=== PATIENT | male | born 1990 | race American Indian/Alaskan Native ===

== ENCOUNTER 2019-03-31 15:56 | Emergency (ER) | payer SELFPAY ==
[2019-03-31 16:05] VITALS: BP 140/84
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
--- NOTE | 2019-03-31 17:59 | Cat Scan Report ---
CT head/brain wo con INDICATION / CLINICAL INFORMATION: 29 years Male; headache. TECHNIQUE: Routine CT head without contrast. All CT scans at this location are performed using CT dos e reduction for ALARA by means of automated exposure control. COMPARISON: None. FINDINGS: BRAIN / INTRACRANIAL CONTENTS: The brain demonstrate appropriate attenuation. The ventricular system is within normal limits in size and configuration. There is no CT evidence of acute intracranial hemo rrhage or significant mass effect. ORBITS: No significant abnormality of visualized orbits. SINUSES / MASTOIDS: No significant abnormality the visualized paranasal sinuses or mastoid air cells. CRANIOCERVICAL JUNCTION: No significant abnormality. ADDITIONAL FINDINGS: None. IMPRESSION: 1. There is no CT evidence of acute intracranial process. Signer Name: Pierce Merlos MD Signed: 03/31/2019 5:55 PM Workstation Name: [id number]
== END 2019-03-31 17:44 | disposition left against medical advice (07) ==
LOC: ED 15:56
DX: R51 Headache (principal); J45.909 Unspecified asthma, uncomplicated; V49.49XA Driver injured in collision with other motor vehicles in traffic accident, initial encounter; Y93.89 Activity, other specified; Y92.488 Other paved roadways as the place of occurrence of the external cause; Y99.8 Other external cause status
CPT/HCPCS: 70450; 99283

== ENCOUNTER 2019-06-07 11:51 | Emergency (ER) | payer SELFPAY ==
[2019-06-07 11:56] VITALS: BP 139/74
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
== END 2019-06-07 12:40 | disposition left against medical advice (07) ==
LOC: ED 11:51
DX: M54.89 Other dorsalgia (principal); W30.81XA Contact with agricultural transport vehicle in stationary use, initial encounter; Y93.89 Activity, other specified; Y92.410 Unspecified street and highway as the place of occurrence of the external cause; Y99.8 Other external cause status
CPT/HCPCS: 99281

== ENCOUNTER 2020-03-13 15:29 | Emergency (ER) | payer SELFPAY ==
[2020-03-13 15:56] VITALS: BP 157/91
== END 2020-03-13 17:54 | disposition left against medical advice (07) ==
LOC: ED 15:29
DX: R51.9 Headache, unspecified (principal); Z53.21 Procedure and treatment not carried out due to patient leaving prior to being seen by health care provider

== ENCOUNTER 2020-03-14 08:08 | Emergency (ER) | payer SELFPAY ==
[2020-03-14 08:19] VITALS: BP 145/87
[2020-03-14] MEDS ORDERED: diphenhydrAMINE 25 MG CAP PO ONE (09:05)
[2020-03-14] MEDS: KETOROLAC 60 MG/2 ML INJ IM ONE ×2 (09:15→09:19)
--- NOTE | 2020-03-14 10:17 | Cat Scan Report ---
CT head without contrast INDICATION : headcahe. TECHNIQUE: Axial imaging performed from the skull apex through the skull base without the use of con trast. All CT scans at this location are performed using CT dose reduction for ALARA by means of aut omated exposure control. COMPARISON: CT head from 03/31/2019 FINDINGS: Parenchyma: No acute intracranial hemorrhage or parenchymal abnormality. Ventricles: Ventricles are normal in size and appear symmetric. Soft tissues: Soft tissues including the orbits appear normal. Bones: No acute osseous abnormality. Sinuses: Sinuses and mastoid air cells are clear. IMPRESSION: No acute abnormality. Signer Name: Curtis Alexander MD Signed: 03/14/2020 10:16 AM Workstation Name: [id number]
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
== END 2020-03-14 10:46 | disposition home or self-care (01) ==
LOC: ED 08:08
DX: S00.03XA Contusion of scalp, initial encounter (principal); R51.9 Headache, unspecified; J45.909 Unspecified asthma, uncomplicated; Z79.899 Other long term (current) drug therapy; W22.8XXA Striking against or struck by other objects, initial encounter; Y93.89 Activity, other specified; Y92.009 Unspecified place in unspecified non-institutional (private) residence as the place of occurrence of the external cause; Y99.8 Other external cause status
CPT/HCPCS: 70450; 99283; J1885

== ENCOUNTER 2020-09-08 11:14 | Emergency (ER) | payer SELFPAY ==
[2020-09-08 11:37] VITALS: BP 134/87
--- NOTE | 2020-09-08 11:54 | Event Note ---
ED Screening Note ED Screening Note: pt presents for constipation for 3 days states he has n/v and generalized abd pain states he tried to have a BM today and saw liquid bright red blood PMHx IBS? no allergies to meds PSHx none This initial assessment/diagnostic orders/clinical plan/treatment(s) is/are subject to change based on patients health status, clinical progression and re- assessment by fellow clinical providers in the ED. Further treatment and workup at subsequent clinical providers discretion. Patient/guardian urged not to elope from the ED as their condition may be serious if not clinically assessed and managed. Initial orders include: labs, UA, xr, ct
--- NOTE | 2020-09-08 12:24 | XRay Report ---
Abdomen single view INDICATION: Abdominal pain IMPRESSION: Nonobstructive bowel gas pattern. No free air. Signer Name: Tera Dietrich MD Signed: 09/08/2020 12:19 PM Workstation Name: [id number]
[2020-09-08 12:52] LABS: Hemoglobin 16.5 gm/dl (11.8-15.2); Mean Corpuscular HGB Conc 35 % (32-34); Mean Corpuscular Volume 86 fl (84-94); Platelet Count 110 K/mm3 (140-440); Red Blood Count 5.46 M/mm3 (3.65-5.03); Red Cell Distribution Width 14.2 % (13.2-15.2)
[2020-09-08 13:00] LABS: Bilirubin,Urine NEG (Negative); Blood,Urine NEG (Negative); Color,Urine Yellow (Yellow); Mucus,Urine FEW /HPF; Urobilinogen,Urine < 2.0 mg/dL (<2.0)
[2020-09-08] MEDS ORDERED: LACTATED RINGERS 1,000 ML IV ONE (13:05)
[2020-09-08] MEDS ORDERED: HYOSCYAMINE SUBL 0.125 MG TAB SL ONE (13:06)
[2020-09-08] MEDS ORDERED: ONDANSETRON 4 MG/2 ML INJ IV ONE (13:06)
--- NOTE | 2020-09-08 13:13 | Emergency Department Report ---
ED General Adult HPI - General Chief complaint: Abdominal Pain Stated complaint: POSS BOWEL OBSTR Time Seen by Provider: 09/08/20 11:52 Source: patient Mode of arrival: Ambulatory Limitations: No Limitations - History of Present Illness Initial comments: 30-year-old male without significant past medical history presents for evaluation of abdominal pain. According to the patient he has not felt well for 4 days, initially had diarrhea but is now constipated, has had nausea and vomiting and believes he had a fever and does report chills as well as myalgias. Did not check temperature. Denies cough or respiratory symptoms. Symptoms moderate, nothing makes better or worse, states that he is unable to keep anything down at home. - Related Data Previous Rx's Medication Instructions Recorded Last Taken Type Naproxen 500 mg PO Q12H PRN #12 tablet 03/14/20 Unknown Rx Ciprofloxacin HCl 500 mg PO BID #20 tablet 09/08/20 Unknown Rx Promethazine [Phenergan] 25 mg PO Q6HR PRN #12 tab 09/08/20 Unknown Rx metroNIDAZOLE [Flagyl TAB] 500 mg PO Q8HR #30 tablet 09/08/20 Unknown Rx traMADoL [Ultram 50 MG tab] 50 mg PO Q4HR PRN #15 tablet 09/08/20 Unknown Rx Allergies Allergy/AdvReac Type Severity Reaction Status Date / Time No Known Allergies Allergy Verified 03/14/20 08:16 ED Review of Systems ROS: Stated complaint: POSS BOWEL OBSTR Other details as noted in HPI Comment: All other systems reviewed and negative Gastrointestinal: as per HPI ED Past Medical Hx - Past Medical History Hx Asthma: Yes - Surgical History Past Surgical History?: No - Social History Smoking Status: Never Smoker - Medications Home Medications: Home Medications Medication Instructions Recorded Confirmed Last Taken Type Naproxen 500 mg PO Q12H PRN #12 tablet 03/14/20 Unknown Rx Ciprofloxacin HCl 500 mg PO BID #20 tablet 09/08/20 Unknown Rx Promethazine [Phenergan] 25 mg PO Q6HR PRN #12 tab 09/08/20 Unknown Rx metroNIDAZOLE [Flagyl TAB] 500 mg PO Q8HR #30 tablet 09/08/20 Unknown Rx traMADoL [Ultram 50 MG tab] 50 mg PO Q4HR PRN #15 tablet 09/08/20 Unknown Rx ED Physical Exam - General Limitations: No Limitations General appearance: alert, in no apparent distress - Head Head exam: Present: atraumatic, normocephalic - Eye Eye exam: Present: normal appearance - ENT ENT exam: Present: mucous membranes moist - Neck Neck exam: Present: normal inspection - Respiratory Respiratory exam: Present: normal lung sounds bilaterally. Absent: respiratory distress - Cardiovascular Cardiovascular Exam: Present: regular rate, normal rhythm. Absent: systolic murmur, diastolic murmur, rubs, gallop - GI/Abdominal GI/Abdominal exam: Present: soft, tenderness (diffusely), normal bowel sounds. Absent: guarding, rebound - Rectal Rectal exam: Present: deferred - Extremities Exam Extremities exam: Present: normal inspection - Back Exam Back exam: Present: normal inspection - Neurological Exam Neurological exam: Present: alert, oriented X3 - Psychiatric Psychiatric exam: Present: normal affect, normal mood - Skin Skin exam: Present: warm, dry, intact, normal color. Absent: rash ED Course Vital Signs 09/08/20 11:35 Temperature 99.4 F Pulse Rate 94 H Respiratory 18 Rate Blood Pressure 134/87 O2 Sat by Pulse 98 Oximetry ED Medical Decision Making - Lab Data Result diagrams: 09/08/20 12:29 09/08/20 12:29 Lab Results 09/08/20 09/08/20 09/08/20 Range/Units 12:29 12:29 12:40 WBC 2.7 L (4.5-11.0) K/mm3 RBC 5.46 H (3.65-5.03) M/mm3 Hgb 16.5 H (11.8-15.2) gm/dl Hct 47.0 H (35.5-45.6) % MCV 86 (84-94) fl MCH 30 (28-32) pg MCHC 35 H (32-34) % RDW 14.2 (13.2-15.2) % Plt Count 110 L (140-440) K/mm3 Add Manual Diff Complete Total Counted 100 Seg Neutrophils % Pipe Stem [place]yer Seg Neuts % (Manual) 47.0 (40.0-70.0) % Lymphocytes % (Manual) 49.0 H (13.4-35.0) % Monocytes % (Manual) 4.0 (0.0-7.3) % Nucleated RBC % Not Reportable Seg Neutrophils # Man 1.3 L (1.8-7.7) K/mm3 Band Neutrophils # 0.0 K/mm3 Lymphocytes # (Manual) 1.3 (1.2-5.4) K/mm3 Abs React Lymphs (Man) 0.0 K/mm3 Monocytes # (Manual) 0.1 (0.0-0.8) K/mm3 Eosinophils # (Manual) 0.0 (0.0-0.4) K/mm3 Basophils # (Manual) 0.0 (0.0-0.1) K/mm3 Metamyelocytes # 0.0 K/mm3 Myelocytes # 0.0 K/mm3 Promyelocytes # 0.0 K/mm3 Blast Cells # 0.0 K/mm3 WBC Morphology Not Reportable Hypersegmented Neuts Not Reportable Hyposegmented Neuts Not Reportable Hypogranular Neuts Not Reportable Smudge Cells Not Reportable Toxic Granulation Not Reportable Toxic Vacuolation Not Reportable Dohle Bodies Not Reportable Pelger-Huet Anomaly Not Reportable Arianna Rods Not Reportable Platelet Estimate Consistent w auto Clumped Platelets Not Reportable Plt Clumps, EDTA Not Reportable Large Platelets Not Reportable Giant Platelets Not Reportable Platelet Satelliting Not Reportable Plt Morphology Comment Not Reportable RBC Morphology Normal Dimorphic RBCs Not Reportable Polychromasia Not Reportable Hypochromasia Not Reportable Poikilocytosis Not Reportable Anisocytosis Not Reportable Microcytosis Not Reportable Macrocytosis Not Reportable Spherocytes Not Reportable Pappenheimer Bodies Not Reportable Sickle Cells Not Reportable Target Cells Not Reportable Tear Drop Cells Not Reportable Ovalocytes Not Reportable Helmet Cells Not Reportable Carter-[place] Bodies Not Reportable [place] Rings Not Reportable [place] Cells Not Reportable Bite Cells Not Reportable Crenated Cell Not Reportable Elliptocytes Not Reportable Acanthocytes (Spur) Not Reportable Rouleaux Not Reportable Hemoglobin C Crystals Not Reportable Schistocytes Not Reportable Malaria parasites Not Reportable Yoni Bodies Not Reportable Hem Pathologist Commnt No Sodium 133 L (137-145) mmol/L Potassium 3.2 L (3.6-5.0) mmol/L Chloride 95.0 L (98-107) mmol/L Carbon Dioxide 24 (22-30) mmol/L Anion Gap 17 mmol/L BUN 7 L (9-20) mg/dL Creatinine 0.9 (0.8-1.3) mg/dL Estimated GFR > 60 ml/min BUN/Creatinine Ratio 8 % Glucose 91 (75-100) mg/dL Calcium 8.4 (8.4-10.2) mg/dL Total Bilirubin 0.50 (0.1-1.2) mg/dL AST 35 (5-40) units/L ALT 34 (7-56) units/L Alkaline Phosphatase 75 (35-129) units/L Total Protein 8.1 (6.3-8.2) g/dL Albumin 4.0 (3.9-5) g/dL Albumin/Globulin Ratio 1.0 % Lipase 77 H (13-60) units/L Urine Color Yellow (Yellow) Urine Turbidity Clear (Clear) Urine pH 6.0 (5.0-7.0) Ur Specific [place] 1.016 (1.003-1.030) Urine Protein 30 mg/dl (Negative) mg/dL Urine Glucose (UA) Neg (Negative) mg/dL Urine Ketones Tr (Negative) mg/dL Urine Blood Neg (Negative) Urine Nitrite Neg (Negative) Urine Bilirubin Neg (Negative) Urine Urobilinogen < 2.0 (<2.0) mg/dL Ur Leukocyte Esterase Neg (Negative) Urine WBC (Auto) 5.0 (0.0-6.0) /HPF Urine RBC (Auto) 2.0 (0.0-6.0) /HPF U Epithel Cells (Auto) < 1.0 (0-13.0) /HPF Urine Mucus Few /HPF - Radiology Data Radiology results: report reviewed CT abdomen pelvis shows findings suggestive of proctitis with associated lymphadenopathy - Medical Decision Making 30-year-old male presents with nausea vomiting for the past 4 days. Also had diarrhea but now states he is constipated. Reports associated abdominal pain. Also reports chills, possible fever, body aches. No respiratory symptoms today. On exam heart sounds are normal, lungs are clear, abdomen is mildly tender diffusely, no peritonitis. Labs IV fluids, antiemetics ordered. CT will also be obtained. Patient is improved at this time and able to tolerate oral intake, no further vomiting in the emergency department. Labs today reveal a mild leukopenia as well as mild thrombocytopenia. There is also mild hyponatremia and hypochloremia likely secondary to dehydration and potassium was slightly decreased at 3.2 which was repleted orally. CT scan shows findings suggestive of proctitis with associated lymphadenopathy in the lower abdomen and the patient does admit to having irregular bowel movements for some time. The patient was reexamined and is in no distress at this time, benign abdomen. I have discussed all lab findings as well as CT findings and discussed the need for close outpatient follow-up with gastroenterology to ensure that there is not an underlying mass in the rectal region causing these changes today. I feel that the patient is stable for outpatient follow-up and treatment at this time. I also recommended that he have his white blood cell count rechecked and consider obtaining an HIV test with the health department or primary care. He verbalized understanding and agreement with this plan. Return precautions were given. - Differential Diagnosis Gastroenteritis, viral syndrome, colitis, bowel obstruction Critical care attestation.: If time is entered above; I have spent that time in minutes in the direct care of this critically ill patient, excluding procedure time. ED Disposition Clinical Impression: Thrombocytopenia, Proctitis Leukopenia Qualifiers: Leukopenia type: unspecified Qualified Code(s): D72.819 - Decreased white blood cell count, unspecified Nausea & vomiting Qualifiers: Vomiting type: unspecified Vomiting Intractability: non-intractable Qualified Code(s): R11.2 - Nausea with vomiting, unspecified Disposition: DC-01 TO HOME OR SELFCARE Is pt being admited?: No Condition: Stable Instructions: Proctitis Additional Instructions: Your work-up today appears to be consistent with proctitis or inflammation/infection of the rectum. There were associated lymph nodes enlarged on the CT scan and as discussed after treatment with antibiotics you must follow-up with gastroenterology (GI) to ensure that there is no underlying mass causing the CT findings. As discussed your white blood cell count and platelets are also a little bit decreased today and should be repeated by your primary care doctor and I also recommend that you undergo an HIV test with the health department or your primary care doctor if there is any concern for that. Prescriptions: Ciprofloxacin HCl 500 mg PO BID #20 tablet metroNIDAZOLE [Flagyl TAB] 500 mg PO Q8HR #30 tablet Promethazine [Phenergan] 25 mg PO Q6HR PRN #12 tab PRN Reason: Nausea traMADoL [Ultram 50 MG tab] 50 mg PO Q4HR PRN #15 tablet PRN Reason: Pain Referrals: PRIMARY CARE, [Primary Care Provider] - 3-5 Days MARILU POLANCO MD [Staff Physician] - 3-5 Days Time of Disposition: 16:26
[2020-09-08 13:17] LABS: Alanine Aminotransferase 34 units/L (7-56); BUN/Creatinine Ratio 8; Blood Urea Nitrogen 7 mg/dL (9-20); Calcium 8.4 mg/dL (8.4-10.2); Hemolysis Index 17
[2020-09-08] MEDS ORDERED: POTASSIUM CHLORIDE ER 20 MEQ TAB PO ONE (13:18)
[2020-09-08 14:04] LABS: Total Cells Counted 100
[2020-09-08 14:05] LABS: Platelet Estimate Consistent w Auto; RBC Morphology Normal
[2020-09-08] MEDS ORDERED: METOCLOPRAMIDE 10 MG/2 ML INJ IV ONE (15:12)
[2020-09-08] MEDS ORDERED: diphenhydrAMINE 50 MG/ML VIAL IV ONE (15:12)
--- NOTE | 2020-09-08 16:15 | Cat Scan Report ---
CT ABDOMEN AND PELVIS WITH CONTRAST INDICATION / CLINICAL INFORMATION: abd pain, n/v, constipation. TECHNIQUE: Axial CT images were obtained through the abdomen and pelvis after IV contrast. All CT scans at this location are performed using CT dose reduction for ALARA by means of automated exposure control. COMPARISON: None available. FINDINGS: LOWER CHEST: No significant abnormality. LIVER: No significant abnormality. GALLBLADDER: No significant abnormality. BILE DUCTS: No significant abnormality. PANCREAS: No significant abnormality. SPLEEN: No significant abnormality. ADRENALS: No significant abnormality. RIGHT KIDNEY / URETER: No significant abnormality. LEFT KIDNEY / URETER: No significant abnormality. STOMACH / SMALL BOWEL: No significant abnormality. COLON: No significant abnormality. No significant colonic stool burden. Mild thickening of the coloni c wall at the rectal vault (series 2 image 139). No pericolonic abscess is noted. APPENDIX: No significant abnormality. PERITONEUM: No free fluid. No free air. No fluid collection. LYMPH NODES: Scattered reactive appearing lymph nodes are noted in the mesentery and right lower quad rant of the abdomen. None of which are enlarged according to CT size criteria. However, there are enl arged lymph nodes in the deep pelvis perirectal region, the largest measuring 1.1 cm short axis anter ior to the sacrum (series 2 image 144). AORTA / ARTERIES: No significant abnormality. IVC / VEINS: No significant abnormality. URINARY BLADDER: No significant abnormality. REPRODUCTIVE ORGANS: No significant abnormality. ADDITIONAL FINDINGS: None. SKELETAL SYSTEM: No significant abnormality. No aggressive osseous lesions. IMPRESSION: 1. Mild thickening of the colonic wall at the rectal vault with pericolonic/perirectal lymphadenopath y as described above. This could represent infectious/inflammatory proctitis. Short-term follow-up af ter resolution of acute process is recommended to rule out any underlying colonic wall pathology. No evidence of pericolonic abscess. 2. Numerous reactive appearing lymph nodes scattered throughout the mesentery and right lower quadran t abdomen without significant fat stranding. This could represent mild mesenteric adenitis. 3. The gallbladder and appendix are unremarkable. 4. No significant colonic stool burden to suggest constipation. Signer Name: Jordan Yanes MD Signed: 09/08/2020 4:10 PM Workstation Name: [id number]
== END 2020-09-08 16:49 | disposition home or self-care (01) ==
LOC: ED 11:14
DX: D69.6 Thrombocytopenia, unspecified (principal); D72.819 Decreased white blood cell count, unspecified; K62.89 Other specified diseases of anus and rectum; R11.2 Nausea with vomiting, unspecified; J45.909 Unspecified asthma, uncomplicated; Z79.899 Other long term (current) drug therapy
CPT/HCPCS: 36415; 74019; 74177; 80053; 81001; 83690; 85007; 85025; 96361; 96374; 96375; 99284; J1200; J2405; J2765; J7120; Q9967

== ENCOUNTER 2020-09-14 06:43 | Emergency (ER) | payer SELFPAY ==
[2020-09-14] MEDS ORDERED: ONDANSETRON 4 MG/2 ML INJ IV ONE (10:06)
[2020-09-14] MEDS ORDERED: SODIUM CHLORIDE 0.9% 1000 ML 1,000 ML IV ONE (10:06)
[2020-09-14] MEDS ORDERED: FAMOTIDINE 20 MG/2 ML INJ IV ONE (10:06)
--- NOTE | 2020-09-14 10:18 | Emergency Department Report ---
HPI - General Chief Complaint: Nausea/Vomiting/Diarrhea Time Seen by Provider: 09/14/20 09:54 - HPI HPI: Room 23 The patient is a 30-year-old male present with chief complaint of intractable nausea vomiting. Patient states he has intractable nausea vomiting with any meal. The patient states last time he had a bowel movement was 3 to 4 days ago it was black. Patient denies history of fever. Patient denies any forms of pain. The patient was seen in this ED for the same approximate 1 week ago but states he has not yet seen the hand packer/packager. ED Past Medical Hx - Past Medical History Hx Asthma: Yes - Surgical History Past Surgical History?: No - Family History Family history: no significant - Social History Smoking Status: Never Smoker Substance Use Type: None (Denies illicit drug use) - Medications Home Medications: Home Medications Medication Instructions Recorded Confirmed Last Taken Type Naproxen 500 mg PO Q12H PRN #12 tablet 03/14/20 Unknown Rx Ciprofloxacin HCl 500 mg PO BID #20 tablet 09/08/20 Unknown Rx Promethazine [Phenergan] 25 mg PO Q6HR PRN #12 tab 09/08/20 Unknown Rx metroNIDAZOLE [Flagyl TAB] 500 mg PO Q8HR #30 tablet 09/08/20 Unknown Rx traMADoL [Ultram 50 MG tab] 50 mg PO Q4HR PRN #15 tablet 09/08/20 Unknown Rx Ondansetron [Zofran ODT TAB] 8 mg PO Q8HR #20 tab.rapdis 09/14/20 Unknown Rx Promethazine [Phenergan] 25 mg [place] Q6HR PRN #5 supp.rect 09/14/20 Unknown Rx ED Review of Systems ROS: Stated complaint: N/V Other details as noted in HPI Constitutional: denies: fever Eyes: denies: eye pain ENT: denies: throat pain Respiratory: no symptoms reported Cardiovascular: denies: chest pain Endocrine: no symptoms reported Gastrointestinal: nausea, vomiting, constipation, melena. denies: abdominal pain Genitourinary: denies: dysuria Musculoskeletal: denies: back pain Neurological: denies: headache Physical Exam - Physical Exam Vital Signs: Vital Signs 09/14/20 07:05 Temperature 98.8 F Pulse Rate 86 Respiratory 18 Rate Blood Pressure 137/83 O2 Sat by Pulse 98 Oximetry Physical Exam: GENERAL: The patient is well-developed well-nourished male lying on stretcher not appearing to be in acute distress. [] HEENT: Normocephalic. Atraumatic. Extraocular motions are intact. Patient has moist mucous membranes. NECK: Supple. Trachea midline CHEST/LUNGS: Clear to auscultation. There is no respiratory distress noted. HEART/CARDIOVASCULAR: Regular. There is no tachycardia. There is no gallop rub or murmur. ABDOMEN: Abdomen is soft, nontender. Patient has normal bowel sounds. There is no abdominal distention. SKIN: There is no rash. There is no edema. There is no diaphoresis. NEURO: The patient is awake, alert, and oriented. The patient is cooperative. The patient has no focal neurologic deficits. The patient has normal speech MUSCULOSKELETAL: There is no evidence of acute injury. Rectal: GUAIAC NEGATIVE BROWN STOOL ED Course Vital Signs 09/14/20 07:05 Temperature 98.8 F Pulse Rate 86 Respiratory 18 Rate Blood Pressure 137/83 O2 Sat by Pulse 98 Oximetry - Reevaluation(s) Reevaluation #1: 09/14/20 14:27 Patient resting comfortably. Patient updated on work-up. Patient tolerated p.o. challenge ED Medical Decision Making - Lab Data Result diagrams: 09/14/20 10:06 09/14/20 10:06 Laboratory Tests 09/14/20 09/14/20 10:06 10:06 WBC 5.5 RBC 5.66 H Hgb 17.1 H Hct 49.4 H MCV 87 MCH 30 MCHC 35 H RDW 13.8 Plt Count 202 Lymph % (Auto) Respiratory Clinician [place] % (Auto) Respiratory Clinician Eos % (Auto) Respiratory Clinician Baso % (Auto) Respiratory Clinician Lymph # (Auto) Respiratory Clinician [place] # (Auto) Respiratory Clinician Eos # (Auto) Respiratory Clinician Baso # (Auto) Respiratory Clinician Add Manual Diff Complete Total Counted 100 Seg Neutrophils % Respiratory Clinician Seg Neuts % (Manual) 66.0 Lymphocytes % (Manual) 29.0 Monocytes % (Manual) 5.0 Nucleated RBC % Not Reportable Seg Neutrophils # Respiratory Clinician Seg Neutrophils # Man 3.6 Band Neutrophils # 0.0 Lymphocytes # (Manual) 1.6 Abs React Lymphs (Man) 0.0 Monocytes # (Manual) 0.3 Eosinophils # (Manual) 0.0 Basophils # (Manual) 0.0 Metamyelocytes # 0.0 Myelocytes # 0.0 Promyelocytes # 0.0 Blast Cells # 0.0 WBC Morphology Not Reportable Hypersegmented Neuts Not Reportable Hyposegmented Neuts Not Reportable Hypogranular Neuts Not Reportable Smudge Cells Not Reportable Toxic Granulation Not Reportable Toxic Vacuolation Not Reportable Dohle Bodies Not Reportable Pelger-Huet Anomaly Not Reportable Arianna Rods Not Reportable Platelet Estimate Consistent w auto Clumped Platelets Not Reportable Plt Clumps, EDTA Not Reportable Large Platelets Not Reportable Giant Platelets Not Reportable Platelet Satelliting Not Reportable Plt Morphology Comment Not Reportable RBC Morphology Normal Dimorphic RBCs Not Reportable Polychromasia Not Reportable Hypochromasia Not Reportable Poikilocytosis Not Reportable Anisocytosis Not Reportable Microcytosis Not Reportable Macrocytosis Not Reportable Spherocytes Not Reportable Pappenheimer Bodies Not Reportable Sickle Cells Not Reportable Target Cells Not Reportable Tear Drop Cells Not Reportable Ovalocytes Not Reportable Helmet Cells Not Reportable Carter-[place] Bodies Not Reportable [place] Rings Not Reportable [place] Cells Not Reportable Bite Cells Not Reportable Crenated Cell Not Reportable Elliptocytes Not Reportable Acanthocytes (Spur) Not Reportable Rouleaux Not Reportable Hemoglobin C Crystals Not Reportable Schistocytes Not Reportable Malaria parasites Not Reportable Yoni Bodies Not Reportable Hem Pathologist Commnt No Sodium 134 L Potassium 5.3 H Chloride 94.6 L Carbon Dioxide 29 Anion Gap 16 BUN 7 L Creatinine 0.9 Estimated GFR > 60 BUN/Creatinine Ratio 8 Glucose 75 Calcium 8.9 Total Bilirubin 0.70 AST 142 H ALT 201 H Alkaline Phosphatase 73 Total Protein 7.8 Albumin 4.5 Albumin/Globulin Ratio 1.4 - Radiology Data Radiology results: report reviewed (CT abdomen pelvis), image reviewed (CT abdomen pelvis) [facility] [address] [place] [address] Cat Scan Report Signed Patient: PATSY VASQUEZ MR#: [id number] : 1990 Acct:[id number] Age/Sex: 30 / M ADM Date: 09/14/20 Loc: ED Attending Dr: Ordering Physician: SARAH BETH HILL MD Date of Service: 09/14/20 Procedure(s): CT abdomen pelvis w con Accession Number(s): [id number] cc: SARAH BETH HILL MD CT ABDOMEN AND PELVIS WITH CONTRAST INDICATION / CLINICAL INFORMATION: Intractable nausea and vomiting. TECHNIQUE: Axial CT images were obtained through the abdomen and pelvis after 100 mL Omnipaque [address] scans at this location are performed using CT dose reduction for ALARA by means of automated exposure control. COMPARISON: CT abdomen pelvis 09/08/2020 FINDINGS: LOWER CHEST: No significant abnormality. LIVER: No significant abnormality. BILIARY SYSTEM: No significant abnormality. PANCREAS: No significant abnormality. SPLEEN: No significant abnormality. ADRENALS: No significant abnormality. KIDNEYS and URETERS: No significant abnormality. STOMACH / BOWEL: No significant abnormality. There has been interval resolution of previously seen rectal wall thickening. The appendix is normal. PERITONEUM: No free fluid. No free air. No fluid collection. LYMPH NODES: Redemonstration of several mildly prominent perirectal lymph nodes and right lower quadrant mesenteric nodes, not significantly changed from prior examination. VASCULAR STRUCTURES: No signific ant abnormality. URINARY BLADDER: No significant abnormality. REPRODUCTIVE ORGANS: No significant abnormality. ADDITIONAL FINDINGS: None. SKELETAL SYSTEM: No significant abnormality. IMPRESSION: 1. Mildly prominent right lower quadrant mesenteric as well as perirectal lymph nodes are not significantly changed from recent prior examination. These are nonspecific and may be reactive. A follow- up CT scan in 6 months could be performed to ensure stability or resolution. 2. Interval improvement of previously seen rectal wall thickening. 3. Otherwise, no acute process identified within the abdomen or pelvis to account for patient's symptoms. Signer Name: Nicolle Oliver MD Signed: 09/14/2020 12:25 PM Workstation Name: [id number] Transcribed By: [facility] Dictated By: Nicolle Oliver MD Electronically Authenticated By: Nicolle Oliver MD Signed Date/Time: 09/14/20 1225 DD/ 1217 TD/TT: Print Cancel - Differential Diagnosis GI bleed, peptic ulcer disease, intractable nausea vomiting, Critical care attestation.: If time is entered above; I have spent that time in minutes in the direct care of this critically ill patient, excluding procedure time. ED Disposition Clinical Impression: Nausea & vomiting Disposition: DC-01 TO HOME OR SELFCARE Is pt being admited?: No Does the pt Need Aspirin: No Condition: Stable Instructions: Nausea and Vomiting, Adult Additional Instructions: Return to the emergency department should you develop worsening symptoms, inability to tolerate food or liquids, high fever or any other concerns Prescriptions: Promethazine [Phenergan] 25 mg WV Q6HR PRN #5 supp.rect PRN Reason: Vomiting Ondansetron [Zofran ODT TAB] 8 mg PO Q8HR #20 tab.rapdis Referrals: MARILU MILLS MD [Staff Physician] - 3-5 Days (Dr. Mills is a hand packer/packager. Please follow-up with him for further evaluation) Time of Disposition: 14:29
[2020-09-14 11:06] LABS: Hematocrit 49.4 % (35.5-45.6); Hemoglobin 17.1 gm/dl (11.8-15.2); Mean Corpuscular HGB Conc 35 % (32-34); Mean Corpuscular Volume 87 fl (84-94); Red Blood Count 5.66 M/mm3 (3.65-5.03); Red Cell Distribution Width 13.8 % (13.2-15.2)
[2020-09-14 11:07] LABS: Platelet Count 202 K/mm3 (140-440)
[2020-09-14 11:39] LABS: Alanine Aminotransferase 201 units/L (7-56); Albumin 4.5 g/dL (3.9-5); BUN/Creatinine Ratio 8; Blood Urea Nitrogen 7 mg/dL (9-20); Calcium 8.9 mg/dL (8.4-10.2); Hemolysis Index 174
[2020-09-14 11:56] LABS: Total Cells Counted 100
[2020-09-14 11:57] LABS: Platelet Estimate Consistent w Auto; RBC Morphology Normal
--- NOTE | 2020-09-14 12:30 | Cat Scan Report ---
CT ABDOMEN AND PELVIS WITH CONTRAST INDICATION / CLINICAL INFORMATION: Intractable nausea and vomiting. TECHNIQUE: Axial CT images were obtained through the abdomen and pelvis after 100 mL Omnipaque [address] scans at this location are performed using CT dose reduction for ALARA by means of automated exposure control. COMPARISON: CT abdomen pelvis 09/08/2020 FINDINGS: LOWER CHEST: No significant abnormality. LIVER: No significant abnormality. BILIARY SYSTEM: No significant abnormality. PANCREAS: No significant abnormality. SPLEEN: No significant abnormality. ADRENALS: No significant abnormality. KIDNEYS and URETERS: No significant abnormality. STOMACH / BOWEL: No significant abnormality. There has been interval resolution of previously seen re ctal wall thickening. The appendix is normal. PERITONEUM: No free fluid. No free air. No fluid collection. LYMPH NODES: Redemonstration of several mildly prominent perirectal lymph nodes and right lower quadr ant mesenteric nodes, not significantly changed from prior examination. VASCULAR STRUCTURES: No significant abnormality. URINARY BLADDER: No significant abnormality. REPRODUCTIVE ORGANS: No significant abnormality. ADDITIONAL FINDINGS: None. SKELETAL SYSTEM: No significant abnormality. IMPRESSION: 1. Mildly prominent right lower quadrant mesenteric as well as perirectal lymph nodes are not signifi cantly changed from recent prior examination. These are nonspecific and may be reactive. A follow-up CT scan in 6 months could be performed to ensure stability or resolution. 2. Interval improvement of previously seen rectal wall thickening. 3. Otherwise, no acute process identified within the abdomen or pelvis to account for patient's sympt oms. Signer Name: Nicolle Oliver MD Signed: 09/14/2020 12:25 PM Workstation Name: [id number]
[2020-09-14] MEDS ORDERED: METOCLOPRAMIDE 10 MG/2 ML INJ IV ONE (14:08)
[2020-09-14 14:34] VITALS: BP 127/74
== END 2020-09-14 14:40 | disposition home or self-care (01) ==
LOC: ED 06:43
DX: R11.2 Nausea with vomiting, unspecified (principal); J45.909 Unspecified asthma, uncomplicated; K59.00 Constipation, unspecified; Z79.899 Other long term (current) drug therapy
CPT/HCPCS: 36415; 74177; 80053; 82271; 85007; 85025; 96361; 96374; 96375; 99284; J2405; J2765; J7030; Q9967

== ENCOUNTER 2020-09-24 21:34 | Inpatient (IN) | payer SELFPAY ==
[2020-09-24] MEDS ORDERED: ONDANSETRON 4 MG/2 ML INJ IV ONE (23:49)
[2020-09-24] MEDS ORDERED: SODIUM CHLORIDE 0.9% 1000 ML 1,000 ML IV ONE ×2 (23:49→23:50)
[2020-09-24] MEDS ORDERED: ACETAMINOPHEN 500 MG TAB PO ONE (23:49)
[2020-09-24] MEDS ORDERED: ASPIRIN 325 MG TAB PO ONE (23:50)
--- NOTE | 2020-09-25 00:21 | XRay Report ---
CHEST 1 VIEW INDICATION: Left chest pain, fever, chills COMPARISON: FINDINGS: SUPPORT DEVICES: None. HEART / MEDIASTINUM: No significant abnormality. LUNGS / PLEURA: No significant pulmonary or pleural abnormality. No pneumothorax. ADDITIONAL FINDINGS: IMPRESSION: 1. No acute cardiopulmonary disease Signer Name: Zaid Velasco MD Signed: 09/25/2020 12:16 AM Workstation Name: [id number]
[2020-09-25 00:42] LABS: Basophils # (Auto) 0.1 K/mm3 (0.0-0.1); Basophils % (Auto) 0.7 % (0.0-1.8); Eosinophils % (Auto) 0.1 % (0.0-4.3); Hematocrit 42.5 % (35.5-45.6); Hemoglobin 15.1 gm/dl (11.8-15.2); Lymphocytes # (Auto) 2.3 K/mm3 (1.2-5.4); Mean Corpuscular HGB Conc 35 % (32-34); Mean Corpuscular Volume 87 fl (84-94); Monocytes # (Auto) 1.5 K/mm3 (0.0-0.8); Platelet Count 207 K/mm3 (140-440); Red Cell Distribution Width 14.4 % (13.2-15.2)
[2020-09-25 00:43] LABS: Monocytes % (Auto) 14.8 % (0.0-7.3)
[2020-09-25 00:56] LABS: Alanine Aminotransferase 230 units/L (7-56); Albumin 4.2 g/dL (3.9-5); BUN/Creatinine Ratio 6; Blood Urea Nitrogen 5 mg/dL (9-20); Hemolysis Index 8
[2020-09-25 01:10] LABS: Bilirubin,Urine NEG (Negative); Blood,Urine NEG (Negative); Color,Urine Yellow (Yellow); Mucus,Urine FEW /HPF; Urobilinogen,Urine < 2.0 mg/dL (<2.0)
--- NOTE | 2020-09-25 01:45 | Cat Scan Report ---
CT ABDOMEN AND PELVIS WITH CONTRAST INDICATION / CLINICAL INFORMATION: Abdominal pain and fever TECHNIQUE: Axial CT images were obtained through the abdomen and pelvis after 100 cc Omnipaque 300 milligrams pe rcent IV contrast. All CT scans at this location are performed using CT dose reduction for ALARA by means of automated exposure control. COMPARISON: Exam is compared to 09/14/2020 FINDINGS: LOWER CHEST: Interval development airspace process with consolidation left lower lobe LIVER: No significant abnormality. GALLBLADDER: No significant abnormality. BILE DUCTS: No significant abnormality. PANCREAS: No significant abnormality. SPLEEN: No significant abnormality. ADRENALS: No significant abnormality. RIGHT KIDNEY and URETER: No significant abnormality. LEFT KIDNEY and URETER: No significant abnormality. STOMACH and SMALL BOWEL: No significant abnormality. COLON: No significant abnormality. APPENDIX: No significant abnormality. PERITONEUM: Slight reticulation of mesentery fat No free fluid. No free air. No fluid collection. LYMPH NODES: Again noted multiple mesenteric lymph nodes are present and unchanged in size AORTA and ARTERIES: No significant abnormality. IVC and VEINS: No significant abnormality. URINARY BLADDER: No significant abnormality. REPRODUCTIVE ORGANS: No significant abnormality. ADDITIONAL FINDINGS: None. SKELETAL SYSTEM: No significant abnormality. IMPRESSION: 1. Interval development airspace consolidation left lower lobe with air bronchograms, pneumonia is a concern 2. Nonspecific intestinal gas pattern 3. Prominent mesenteric lymph nodes without interval change Signer Name: Zaid Velasco MD Signed: 09/25/2020 1:41 AM Workstation Name: [id number]
[2020-09-25] MEDS ORDERED: SODIUM CHLORIDE 0.9% 1000 ML 1,000 ML ONE (04:56)
[2020-09-25] MEDS ORDERED: ONDANSETRON 4 MG/2 ML INJ ONE (04:57)
[2020-09-25] MEDS ORDERED: SODIUM CHLORIDE 0.9% 1000 ML IV SOLN IV ONE (10:40)
[2020-09-25] MEDS ORDERED: CEFEPIME/NS 2 GM/100 ML 2 GM/100 ML BAG IV ONE (10:44)
[2020-09-25] MEDS ORDERED: VANCOMYCIN PHARMACY TO DOSE IV SCH (11:00)
--- NOTE | 2020-09-25 11:53 | Emergency Department Report ---
<MATT TRIPATHI - Last Filed: 09/25/20 19:29> ED Chest Pain HPI - General Chief Complaint: Chest Pain Stated Complaint: CHEST PAIN PUI?: Yes Time Seen by Provider: 09/25/20 10:37 Source: patient, EMS Mode of arrival: Wheelchair Limitations: No Limitations - History of Present Illness Initial Comments: 30-year-old male presents complaining of 3 days of left-sided chest pain. He reports that the pain has been constant and is pleuritic in nature. He does have some associated shortness of breath. The pain is nonradiating although he does sometimes experience separate pain in his left shoulder. He reports that approximately 2 weeks ago he was diagnosed with some kind of rectal infection was prescribed oral antibiotics including ciprofloxacin and metronidazole. He reports that he has been only intermittently compliant with this prescribed regimen. He says that over the last 3 days he developed subjective fevers and the pain described above. He denies any associated headache, vision change, nausea/vomiting, worsening rectal pain, bloody stools, dysuria, palpitations, numbness/weakness, or any other complaints. Severity scale (0 -10): 4 - Related Data Previous Rx's Medication Instructions Recorded Last Taken Type Naproxen 500 mg PO Q12H PRN #12 tablet 03/14/20 Unknown Rx Ciprofloxacin HCl 500 mg PO BID #20 tablet 09/08/20 Unknown Rx Promethazine [Phenergan] 25 mg PO Q6HR PRN #12 tab 09/08/20 Unknown Rx metroNIDAZOLE [Flagyl TAB] 500 mg PO Q8HR #30 tablet 09/08/20 Unknown Rx traMADoL [Ultram 50 MG tab] 50 mg PO Q4HR PRN #15 tablet 09/08/20 Unknown Rx Ondansetron [Zofran ODT TAB] 8 mg PO Q8HR #20 tab.rapdis 09/14/20 Unknown Rx Promethazine [Phenergan] 25 mg CO Q6HR PRN #5 supp.rect 09/14/20 Unknown Rx Allergies Allergy/AdvReac Type Severity Reaction Status Date / Time Penicillins Allergy Unknown Verified 09/24/20 23:37 Heart Score - HEART Score History: Slightly suspicious EKG: Normal Age: < 45 Risk factors: No known risk factors Troponin: < normal limit HEART Score: 0 - EKG Read Time Time EKG Completed: 22:36 EKG Read Time: 22:36 ED Review of Systems Constitutional: fever. denies: weakness Eyes: denies: eye pain, vision change ENT: denies: throat pain, epistaxis Respiratory: SOB at rest, other (Pleuritic painb). denies: cough Cardiovascular: chest pain. denies: palpitations, edema Gastrointestinal: denies: abdominal pain, nausea, vomiting Genitourinary: denies: dysuria, frequency Musculoskeletal: denies: back pain, joint swelling Neurological: denies: weakness, numbness ED Past Medical Hx - Past Medical History Previous Medical History?: Yes Hx Asthma: Yes - Surgical History Past Surgical History?: No - Social History Smoking Status: Never Smoker Substance Use Type: None (Denies illicit drug use) - Medications Home Medications: Home Medications Medication Instructions Recorded Confirmed Last Taken Type Naproxen 500 mg PO Q12H PRN #12 tablet 03/14/20 Unknown Rx Ciprofloxacin HCl 500 mg PO BID #20 tablet 09/08/20 Unknown Rx Promethazine [Phenergan] 25 mg PO Q6HR PRN #12 tab 09/08/20 Unknown Rx metroNIDAZOLE [Flagyl TAB] 500 mg PO Q8HR #30 tablet 09/08/20 Unknown Rx traMADoL [Ultram 50 MG tab] 50 mg PO Q4HR PRN #15 tablet 09/08/20 Unknown Rx Ondansetron [Zofran ODT TAB] 8 mg PO Q8HR #20 tab.rapdis 09/14/20 Unknown Rx Promethazine [Phenergan] 25 mg CO Q6HR PRN #5 supp.rect 09/14/20 Unknown Rx ED Physical Exam - General Limitations: No Limitations - Other Other exam information: GENERAL: Well developed. Well nourished. No acute distress HEENT: Normocephalic. No obvious contusions, abrasions, lacerations, or other signs of trauma. Moist mucous membranes. EYES: Extraocular movements are intact. Pupils are equal round and reactive to light bilaterally NECK: Supple. Trachea is midline. LUNGS: Nonlabored breathing. Equal chest rise bilaterally. Clear to auscultation bilaterally. HEART/CARDIOVASCULAR: Tachycardic. Regular rate and rhythm. No murmurs or rubs. ABDOMEN: Abdomen is soft and nondistended. Normal bowel sounds. No significant tenderness, guarding or rebound. SKIN: Skin is warm and dry NEURO: Patient is awake, alert, and oriented. No focal deficits. Normal motor and sensory exam throughout. Normal speech. MUSCULOSKELETAL: Normal ROM throughout. There are no tenderness or deformity. No significant limitation of range of motion. ED Course - Reevaluation(s) Reevaluation #1: 09/25/20 12:39 Fluids running. Heart rate remains elevated in the 120s. Patient remains with normal oxygen saturation without supplemental oxygen requesting pain medication will give 30 mg of IV Toradol and continue to monitor. At 1440, patient's pain is much improved. His heart rate remains elevated in the high 120s despite adequate fluid resuscitation and IV antibiotics. Given u nexplained tachycardia will order CTA of the chest to assess for PE and evaluate pneumonia identified on prior CT of the abdomen. Reevaluation #2: 09/25/20 14:48 lens coating technician says that patient cannot receive more IV contrast until 1 AM due to prior scan. We will thus order D-dimer to assess risk of PE. Reevaluation #3: 09/25/20 18:04 D-dimer returned elevated at 1175. Given that the patient cannot undergo CTA we will order V/Q scan to assess for evidence of pulmonary embolism Reevaluation #4: 09/25/20 19:55 Patient signed out to Dr. Lua to follow up the result of the V/Q scan and determine the proper disposition. FOREST score - Forest Score Age > 65: (0) No Aspirin use within the Past 7 Days: (0) No 3 or more CAD Risk Factors: (0) No 2 or more Angina events in past 24 hrs: (0) No Known CAD with more than 50% Stenosis: (0) No Elevated Cardiac Markers: (0) No ST Deviation Greater than 0.5mm: (0) No FOREST Score: 0 ED Medical Decision Making - Lab Data Result diagrams: 09/25/20 00:09 09/25/20 00:09 - EKG Data -: EKG Interpreted by Me - EKG Data 09/25/20 13:34 Normal sinus rhythm. Normal intervals. Normal axis. No ectopy. No signif icant ST segment or T wave abnormalities - Radiology Data CT ABDOMEN AND PELVIS WITH CONTRAST INDICATION / CLINICAL INFORMATION: Abdominal pain and fever TECHNIQUE: Axial CT images were obtained through the abdomen and pelvis after 100 cc Omnipaque 300 milligrams percent IV contrast. All CT scans at this location are performed using CT dose reduction for ALARA by means of automated exposure control. COMPARISON: Exam is compared to 09/14/2020 FINDINGS: LOWER CHEST: Interval development airspace process with consolidation left lower lobe LIVER: No significant abnormality. GALLBLADDER: No significant abnormality. BILE DUCTS: No significant abnormality. PANCREAS: No significant abnormality. SPLEEN: No significant abnormality. ADRENALS: No significant abnormality. RIGHT KIDNEY and URETER: No significant abnormality. LEFT KIDNEY and URETER: No significant abnormality. STOMACH and SMALL BOWEL: No significant abnormality. COLON: No significant abnormality. APPENDIX: No significant abnormality. PERITONEUM: Slight reticulation of mesentery fat No free fluid. No free air. No fluid collection. LYMPH NODES: Again noted multiple mesenteric lymph nodes are present and unchanged in size AORTA and ARTERIES: No significant abnormality. IVC and VEINS: No significant abnormality. URINARY BLADDER: No significant abnormality. REPRODUCTIVE ORGANS: No significant abnor mality. ADDITIONAL FINDINGS: None. SKELETAL SYSTEM: No significant abnormality. IMPRESSION: 1. Interval development airspace consolidation left lower lobe with air bronchograms, pneumonia is a concern 2. Nonspecific intestinal gas pattern 3. Prominent mesenteric lymph nodes without interval change Signer Name: Zaid Velasco MD Signed: 09/25/2020 12:41 AM Workstation Name: [id number] CHEST 1 VIEW INDICATION: Left chest pain, fever, chills COMPARISON: FINDINGS: SUPPORT DEVICES: None. HEART / MEDIASTINUM: No significant abnormality. LUNGS / PLEURA: No significant pulmonary or pleural abnormality. No pneumothorax. ADDITIONAL FINDINGS: IMPRESSION: 1. No acute cardiopulmonary disease Signer Name: Zaid Velasco MD Signed: 09/24/2020 11:16 PM Workstation Name: [id number] - Medical Decision Making 30-year-old male presenting with 3 days of left-sided chest pain which is pleuritic in nature and associated with shortness of breath. Of note, patient was recently seen in the emergency department 2 weeks ago and diagnosed with likely proctitis based on CT scan and was prescribed ciprofloxacin and metronidazole which the patient has not been fully compliant with. On initial assessment, the patient is noted to have an elevated temperature of 100.0 as well as elevated heart rate in the 120s. Given the concern for possible sepsis, sepsis order set was initiated including cultures and lactic acid. We will give 30 mL/kg of IV fluids and broad-spectrum cefepime. Review of the patient's CT of the abdomen and pelvis shows that although there is not an acute abdominal process identified there is findings consistent with left lower lobe pneumonia which may explain the patient's presentation. We will continue to monitor response to therapy. Labs reveal no significant leukocytosis, mild transaminitis, negative troponin. Lactic acid is within normal range. ED Disposition Clinical Impression: Tachycardia, Pleuritic chest pain Pneumonia Qualifiers: Pneumonia type: due to unspecified organism Laterality: left Lung location: lower lobe of lung Qualified Code(s): J18.9 - Pneumonia, unspecified organism Disposition: OP ADMIT IP TO THIS HOSP Condition: Fair Instructions: Bacterial Pneumonia (ED) <MARC LUA - Last Filed: 09/25/20 22:00> ED Review of Systems ROS: Stated complaint: CHEST PAIN Other details as noted in HPI ED Course Vital Signs 09/24/20 09/25/20 09/25/20 22:13 00:17 01:17 Temperature 100.0 F H Pulse Rate 116 H Respiratory 18 20 20 Rate Blood Pressure 144/95 Blood Pressure [Left] O2 Sat by Pulse 96 Oximetry 09/25/20 09/25/20 09/25/20 11:03 11:06 11:16 Temperature Pulse Rate 112 H 114 H 113 H Respiratory 15 22 21 Rate Blood Pressure 146/100 Blood Pressure 146/100 [Left] O2 Sat by Pulse 98 98 97 Oximetry 09/25/20 09/25/20 09/25/20 11:30 11:46 12:00 Temperature Pulse Rate 111 H 114 H 114 H Respiratory 31 H 31 H 27 H Rate Blood Pressure 139/96 139/96 148/92 Blood Pressure [Left] O2 Sat by Pulse 97 97 97 Oximetry 09/25/20 09/25/20 09/25/20 12:10 12:16 12:30 Temperature Pulse Rate 112 H 112 H 114 H Respiratory 24 29 H 22 Rate Blood Pressure 148/92 148/92 Blood Pressure 138/92 [Left] O2 Sat by Pulse 97 98 96 Oximetry 09/25/20 09/25/20 09/25/20 12:46 13:00 13:16 Temperature Pulse Rate 120 H 122 H 119 H Respiratory 24 21 29 H Rate Blood Pressure 148/92 141/99 141/99 Blood Pressure [Left] O2 Sat by Pulse 98 97 97 Oximetry 09/25/20 09/25/20 09/25/20 13:30 13:46 14:00 Temperature Pulse Rate 117 H 119 H 122 H Respiratory 25 H 29 H 28 H Rate Blood Pressure 141/99 141/99 137/88 Blood Pressure [Left] O2 Sat by Pulse 98 98 98 Oximetry 09/25/20 09/25/20 09/25/20 14:16 14:19 14:30 Temperature 99.4 F Pulse Rate 123 H 122 H 120 H Respiratory 24 22 21 Rate Blood Pressure 137/88 137/88 Blood Pressure 137/88 [Left] O2 Sat by Pulse 98 97 97 Oximetry 09/25/20 09/25/20 09/25/20 14:46 15:00 15:16 Temperature Pulse Rate 121 H 120 H 115 H Respiratory 34 H 22 33 H Rate Blood Pressure 137/88 137/85 137/85 Blood Pressure [Left] O2 Sat by Pulse 98 98 97 Oximetry 09/25/20 09/25/20 09/25/20 15:30 15:38 15:46 Temperature Pulse Rate 116 H 114 H 114 H Respiratory 32 H 22 25 H Rate Blood Pressure 137/85 137/85 Blood Pressure 137/85 [Left] O2 Sat by Pulse 97 97 97 Oximetry 09/25/20 09/25/20 09/25/20 16:00 16:16 16:30 Temperature Pulse Rate 112 H 115 H 113 H Respiratory 26 H 20 30 H Rate Blood Pressure 135/89 135/89 135/89 Blood Pressure [Left] O2 Sat by Pulse 98 95 97 Oximetry 09/25/20 09/25/20 09/25/20 16:33 16:46 17:00 Temperature 98.9 F Pulse Rate 114 H 116 H 114 H Respiratory 20 25 H 34 H Rate Blood Pressure 135/89 137/88 Blood Pressure 129/86 [Left] O2 Sat by Pulse 97 98 98 Oximetry 09/25/20 09/25/20 09/25/20 17:16 17:30 17:46 Temperature Pulse Rate 123 H 122 H 116 H Respiratory 29 H 26 H 20 Rate Blood Pressure 137/88 137/88 137/88 Blood Pressure [Left] O2 Sat by Pulse 95 96 97 Oximetry 09/25/20 09/25/20 09/25/20 18:00 18:20 18:30 Temperature Pulse Rate 117 H 117 H Respiratory 28 H 20 Rate Blood Pressure 137/89 137/89 137/89 Blood Pressure [Left] O2 Sat by Pulse 97 99 97 Oximetry 09/25/20 09/25/20 09/25/20 18:46 19:00 19:16 Temperature Pulse Rate 108 H 114 H 110 H Respiratory 28 H 24 18 Rate Blood Pressure 137/89 137/89 137/89 Blood Pressure [Left] O2 Sat by Pulse 95 97 96 Oximetry 09/25/20 19:30 Temperature Pulse Rate 108 H Respiratory 28 H Rate Blood Pressure 137/89 Blood Pressure [Left] O2 Sat by Pulse 97 Oximetry ED Medical Decision Making - Lab Data Result diagrams: 09/25/20 00:09 09/25/20 00:09 - Radiology Data Radiology results: report reviewed NUCLEAR MEDICINE PERFUSION LUNG SCAN INDICATION / CLINICAL INFORMATION: Pleuritic chest pain. TECHNIQUE: 5.5 mCi of Tc-99m MAA were given by IV. COMPARISON: Chest radiograph dated 09/25/2020. FINDINGS: PERFUSION: No significant perfusion defects. ADDITIONAL FINDINGS: None. IMPRESSION: 1. Low probability for pulmonary embolism. - Medical Decision Making This patient was signed out to me to follow his ventilation perfusion scan and to assist with disposition. The VQ scan came back low probability for a p ulmonary embolism. I went to reevaluate the patient and he still continues to have tachycardia and tachypnea. I spoke to the admitting hospitalist, Dr. Pacheco, who came to see the patient in the emergency department and afterwards decided to admit the patient for further evaluation and treatment. Critical care attestation.: If time is entered above; I have spent that time in minutes in the direct care of this critically ill patient, excluding procedure time. ED Disposition Is pt being admited?: Yes Time of Disposition: 22:00
[2020-09-25] MEDS ORDERED: VANCOMYCIN 1,750 MG in SODIUM CHLORIDE 0.9% 500 ML 500 ML IV ONE (12:00)
[2020-09-25] MEDS ORDERED: KETOROLAC 30 MG/1 ML INJ IV ONE (13:30)
[2020-09-25] MEDS ORDERED: SODIUM CHLORIDE 0.9% 1000 ML 1,000 ML IV ONE (19:28)
--- NOTE | 2020-09-25 20:39 | Nuclear Medicine Report ---
NUCLEAR MEDICINE PERFUSION LUNG SCAN INDICATION / CLINICAL INFORMATION: Pleuritic chest pain. TECHNIQUE: 5.5 mCi of Tc-99m MAA were given by IV. COMPARISON: Chest radiograph dated 09/25/2020. FINDINGS: PERFUSION: No significant perfusion defects. ADDITIONAL FINDINGS: None. IMPRESSION: 1. Low probability for pulmonary embolism. Signer Name: Deyvi Neal MD Signed: 09/25/2020 8:35 PM Workstation Name: [id number]
[2020-09-25] MEDS ORDERED: ALBUTEROL 2.5 MG/3 ML NEBU IH PRN (21:55)
[2020-09-25] MEDS ORDERED: ONDANSETRON 4 MG/2 ML INJ IV PRN (21:55)
[2020-09-25] MEDS ORDERED: hydrALAZINE 20 MG/1 ML INJ IV PRN (21:57)
--- NOTE | 2020-09-25 22:02 | History and Physical Report ---
History of Present Illness Date of examination: 09/25/20 Date of admission: 09/25/2020 Chief complaint: Chest pain History of present illness: 30-year-old male with past medical history of asthma was brought to the emergency room because of 3 days of left-sided chest pain. Chest pain has been constant and is pleuritic in nature as stated with some associated shortness of breath. The pain is nonradiating although he does sometimes experience separate pain in his left shoulder. He reports that approximately 2 weeks ago he was diagnosed with some kind of rectal infection was prescribed oral antibiotics including ciprofloxacin and metronidazole. He reports that he has been only intermittently compliant with this prescribed regimen. He says that over the 3 days he developed subjective fevers and the pain described above. He denies any associated headache, vision change, nausea/vomiting, worsening rectal pain, bloody stools, dysuria, palpitations, numbness/weakness, or any other complaints. In the emergency room patient is found to have pneumonia also patient is tachycardic Past History Past Medical History: other (Asthma) Medications and Allergies Allergies Allergy/AdvReac Type Severity Reaction Status Date / Time Penicillins Allergy Unknown Verified 09/24/20 23:37 Home Medications Medication Instructions Recorded Confirmed Last Taken Type Naproxen 500 mg PO Q12H PRN #12 tablet 03/14/20 Unknown Rx Ciprofloxacin HCl 500 mg PO BID #20 tablet 09/08/20 Unknown Rx Promethazine [Phenergan] 25 mg PO Q6HR PRN #12 tab 09/08/20 Unknown Rx metroNIDAZOLE [Flagyl TAB] 500 mg PO Q8HR #30 tablet 09/08/20 Unknown Rx traMADoL [Ultram 50 MG tab] 50 mg PO Q4HR PRN #15 tablet 09/08/20 Unknown Rx Ondansetron [Zofran ODT TAB] 8 mg PO Q8HR #20 tab.rapdis 09/14/20 Unknown Rx Promethazine [Phenergan] 25 mg VA Q6HR PRN #5 supp.rect 09/14/20 Unknown Rx Active Meds: Active Medications Acetaminophen (Acetaminophen 325 Mg Tab) 650 mg PO Q4H PRN PRN Reason: Pain MILD(1-3)/Fever >100.5/ROSALES Albuterol (Albuterol 2.5 Mg/3 Ml Nebu) 2.5 mg IH Q3HRT PRN PRN Reason: Shortness Of Breath Albuterol/Ipratropium (Ipratropium/Albuterol Sulfate 3 Ml Ampul.Neb) 1 ampul [facility] Q6HRT [facility] Famotidine (Famotidine 20 Mg Tab) 20 mg PO BID [facility] Heparin Sodium (Porcine) (Heparin 5,000 Unit/1 Ml Vial) 5,000 unit SUB-Q Q8HR FABIANA Hydralazine HCl (Hydralazine 20 Mg/1 Ml Inj) 10 mg IV Q6H PRN PRN Reason: htn Levofloxacin/Dextrose (Levaquin 750mg/150ml) 750 mg in 150 mls @ 100 mls/hr IV Q24H FABIANA; Protocol Ondansetron HCl (Ondansetron 4 Mg/2 Ml Inj) 4 mg IV Q8H PRN PRN Reason: Nausea And Vomiting Sodium Chloride (Sodium Chloride 0.9% 10 Ml Flush Syringe) 10 ml IV BID [facility] Sodium Chloride (Sodium Chloride 0.9% 10 Ml Flush Syringe) 10 ml IV PRN PRN PRN Reason: LINE FLUSH Review of Systems Respiratory: cough, shortness of breath, dyspnea on exertion Exam - Constitutional Vitals: Temp Pulse Resp BP Pulse Ox 98.9 F 108 H 28 H 137/89 97 09/25/20 16:33 09/25/20 19:30 09/25/20 19:30 09/25/20 19:30 09/25/20 19:30 General appearance: Present: no acute distress, well-nourished - EENT Eyes: Present: PERRL ENT: hearing intact, clear oral mucosa - Neck Neck: Present: supple, normal ROM - Respiratory Respiratory effort: normal Respiratory: bilateral: diminished - Cardiovascular Rhythm: regular Heart Sounds: Present: S1 & S2. Absent: rub, click - Extremities Extremities: pulses symmetrical, No edema Peripheral Pulses: within normal limits - Abdominal General gastrointestinal: Present: soft, non-tender, non-distended, normal bowel sounds Male genitourinary: Present: normal - Integumentary Integumentary: Present: clear, warm, dry - Musculoskeletal Musculoskeletal: gait normal, strength equal bilaterally - Psychiatric Psychiatric: appropriate mood/affect, intact judgment & insight - Neurologic Neurologic: CNII-XII intact, moves all extremities HEART Score - HEART Score EKG: Normal Age: < 45 Risk factors: No known risk factors Troponin: Troponin T < 0.010 ng/mL (0.00-0.029) 09/25/20 11:21 Troponin: < normal limit Results - Labs CBC & Chem 7: 09/25/20 00:09 09/25/20 00:09 Labs: Laboratory Last Values WBC 10.1 K/mm3 (4.5-11.0) 09/25/20 00:09 RBC 4.90 M/mm3 (3.65-5.03) 09/25/20 00:09 Hgb 15.1 gm/dl (11.8-15.2) 09/25/20 00:09 Hct 42.5 % (35.5-45.6) 09/25/20 00:09 MCV 87 fl (84-94) 09/25/20 00:09 MCH 31 pg (28-32) 09/25/20 00:09 MCHC 35 % (32-34) H 09/25/20 00:09 RDW 14.4 % (13.2-15.2) 09/25/20 00:09 Plt Count 207 K/mm3 (140-440) 09/25/20 00:09 Lymph % (Auto) 23.0 % (13.4-35.0) 09/25/20 00:09 Bent % (Auto) 14.8 % (0.0-7.3) H 09/25/20 00:09 Eos % (Auto) 0.1 % (0.0-4.3) 09/25/20 00:09 Baso % (Auto) 0.7 % (0.0-1.8) 09/25/20 00:09 Lymph # (Auto) 2.3 K/mm3 (1.2-5.4) 09/25/20 00:09 Bent # (Auto) 1.5 K/mm3 (0.0-0.8) H 09/25/20 00:09 Eos # (Auto) 0.0 K/mm3 (0.0-0.4) 09/25/20 00:09 Baso # (Auto) 0.1 K/mm3 (0.0-0.1) 09/25/20 00:09 Seg Neutrophils % 61.4 % (40.0-70.0) 09/25/20 00:09 Seg Neutrophils # 6.2 K/mm3 (1.8-7.7) 09/25/20 00:09 D-Dimer 1175.93 ng/mlDDU (0-234) H 09/25/20 14:52 Sodium 135 mmol/L (137-145) L 09/25/20 00:09 Potassium 3.7 mmol/L (3.6-5.0) 09/25/20 00:09 Chloride 97.2 mmol/L (98-107) L 09/25/20 00:09 Carbon Dioxide 25 mmol/L (22-30) 09/25/20 00:09 Anion Gap 17 mmol/L 09/25/20 00:09 BUN 5 mg/dL (9-20) L 09/25/20 00:09 Creatinine 0.8 mg/dL (0.8-1.3) 09/25/20 00:09 Estimated GFR > 60 ml/min 09/25/20 00:09 BUN/Creatinine Ratio 6 % 09/25/20 00:09 Glucose 114 mg/dL (75-100) H 09/25/20 00:09 Lactic Acid 0.90 mmol/L (0.7-2.0) 09/25/20 11:21 Calcium 9.0 mg/dL (8.4-10.2) 09/25/20 00:09 Total Bilirubin 1.20 mg/dL (0.1-1.2) 09/25/20 00:09 AST 69 units/L (5-40) H 09/25/20 00:09 ALT 230 units/L (7-56) H 09/25/20 00:09 Alkaline Phosphatase 101 units/L (35-129) 09/25/20 00:09 Troponin T < 0.010 ng/mL (0.00-0.029) 09/25/20 11:21 Total Protein 8.2 g/dL (6.3-8.2) 09/25/20 00:09 Albumin 4.2 g/dL (3.9-5) 09/25/20 00:09 Albumin/Globulin Ratio 1.1 % 09/25/20 00:09 Lipase 41 units/L (13-60) 09/25/20 08:46 Urine Color Yellow (Yellow) 09/24/20 Unknown Urine Turbidity Clear (Clear) 09/24/20 Unknown Urine pH 5.0 (5.0-7.0) 09/24/20 Unknown Ur Specific [place] 1.013 (1.003-1.030) 09/24/20 Unknown Urine Protein 100 mg/dl mg/dL (Negative) 09/24/20 Unknown Urine Glucose (UA) 50 mg/dL (Negative) 09/24/20 Unknown Urine Ketones Neg mg/dL (Negative) 09/24/20 Unknown Urine Blood Neg (Negative) 09/24/20 Unknown Urine Nitrite Neg (Negative) 09/24/20 Unknown Urine Bilirubin Neg (Negative) 09/24/20 Unknown Urine Urobilinogen < 2.0 mg/dL (<2.0) 09/24/20 Unknown Ur Leukocyte Esterase Tr (Negative) 09/24/20 Unknown Urine WBC (Auto) 2.0 /HPF (0.0-6.0) 09/24/20 Unknown Urine RBC (Auto) 2.0 /HPF (0.0-6.0) 09/24/20 Unknown Urine Mucus Few /HPF 09/24/20 Unknown Microbiology: Microbiology 09/25/20 00:03 Peripheral/Venous Blood Culture - Preliminary Culture in Progress 09/25/20 00:09 Peripheral/Venous Blood Culture - Preliminary Culture in Progress - Imaging and Cardiology CT scan - chest: report reviewed Assessment and Plan VTE prophylaxis?: Chemical Plan of care discussed with patient/family: Yes - Patient Problems (1) Pneumonia Current Visit: Yes Status: Acute Plan to address problem: Admit the patient to the medical floor telemetry. Put the patient on pneumonia pathway. Levaquin 750 mg IV daily. DuoNeb by nebulizer every 4 hours as needed. Albuterol via nebulizer every 4 hours as needed. We will do the blood culture and sputum culture. Recheck CBC BMP in the morning. Consult pulmonary if needed in the morning (2) Pleuritic chest pain Current Visit: Yes Status: Acute Plan to address problem: Levaquin 750 mg IV daily. Tylenol 650 mg p.o. every 6 hours as needed. DuoNeb by nebulizer every 4 hours as needed. Albuterol via nebulizer every 4 hours as needed. We will do the blood culture and sputum culture. Recheck CBC BMP in the morning. (3) Tachycardia Current Visit: Yes Status: Acute Plan to address problem: Normal saline at the rate of 100 cc/h. We will monitor the heart rate closely. (4) DVT prophylaxis Current Visit: Yes Status: Acute Plan to address problem: Heparin 5000 units subcu every 8 hours for DVT prophylaxis. Pepcid 20 mg p.o. twice daily for GI prophylaxis. Patient is a full code
[2020-09-25] MEDS ORDERED: MORPHINE 2 MG/1 ML INJ IV PRN (22:05)
[2020-09-25] MEDS ORDERED: SODIUM CHLORIDE 0.9% 1000 ML 1,000 ML IV SCH (22:15)
[2020-09-26] MEDS: HEPARIN 5,000 UNIT/1 ML VIAL SUB-Q SCH ×2 (01:23→09:23)
[2020-09-26] MEDS: ACETAMINOPHEN 325 MG TAB PO PRN ×2 (01:23→22:31)
[2020-09-26] MEDS: FAMOTIDINE 20 MG TAB PO SCH ×3 (01:25→21:19)
[2020-09-26] MEDS ORDERED: IPRATROPIUM/ALBUTEROL SULFATE 3 ML AMPUL.NEB IH SCH (02:00)
[2020-09-26 06:20] LABS: Hematocrit 37.9 % (35.5-45.6); Mean Corpuscular HGB Conc 34 % (32-34); Mean Corpuscular Volume 88 fl (84-94); Platelet Count 173 K/mm3 (140-440); Red Blood Count 4.31 M/mm3 (3.65-5.03); Red Cell Distribution Width 14.4 % (13.2-15.2)
[2020-09-26 07:11] LABS: Anisocytosis 1+; Band Neutrophils # (Manual) 0.1 K/mm3; Platelet Estimate Consistent w Auto; Total Cells Counted 100
[2020-09-26 07:30] LABS: BUN/Creatinine Ratio 6; Blood Urea Nitrogen 5 mg/dL (9-20); Calcium 7.8 mg/dL (8.4-10.2); Hemolysis Index 5
--- NOTE | 2020-09-26 07:57 | Progress Note ---
Assessment and Plan Assessment and plan: --PUI- high suspicion for COVID-19; Current Visit: Yes Status: Acute Contact and droplet isolation, alvarenga PCR test requested Inflammatory markers high patient is requiring 3 L of nasal cannula oxygen Home O2 evaluation at discharge --Hypoxia; patient is requiring 3 L of nasal cannula oxygen Closely monitor, home O2 evaluation prior to discharge --Febrile illness; T-max 102 F Current Visit: Yes Status: Acute Multifactorial due to pneumonia, possible COVID-19 Supportive care antibiotics follow cultures --Pneumonia Current Visit: Yes Status: Acute Empiric antibiotics .check procalcitonin ID consult if needed , oxygen, supportive care --Pleuritic chest pain Current Visit: Yes Status: Acute Plan to address problem: Probably secondary to pneumonia Elevated D-dimers rule out PE Pain medications oxygen and supportive care --Tachycardia Current Visit: Yes Status: Acute Sinus tachycardia due to fevers --Obesity; BMI 32.3 Patient may need weight reduction when medically stable --DVT prophylaxis Current Visit: Yes Status: Acute Heparin 5000 units subcu every 8 hours for DVT prophylaxis. GI prophylaxis ;Pepcid 20 mg p.o. twice daily for GI prophylaxis. Patient is a full code Closely monitor the patient and adjust management as needed Follow Covid PCR test report History Interval history: I have seen and examined the patient at the bedside this morning patient's chart and medications reviewed Patient spiked fever, T-max 102 F Vital signs noted Hospitalist Physical - Constitutional Vitals: Temp Pulse Resp BP Pulse Ox 99.7 F H 101 H 20 147/80 95 09/26/20 05:07 09/26/20 05:07 09/26/20 05:07 09/26/20 05:07 09/26/20 05:07 General appearance: Present: mild distress, well-nourished - EENT Eyes: Present: PERRL, EOM intact - Neck Neck: Present: supple, normal ROM - Respiratory Respiratory effort: normal Respiratory: bilateral: diminished, rhonchi, negative: rales, wheezing - Cardiovascular Rhythm: regular Heart Sounds: Present: S1 & S2 - Extremities Extremities: no ischemia, No edema - Abdominal General gastrointestinal: soft, non-tender, non-distended, normal bowel sounds - Integumentary Integumentary: Present: clear, warm - Psychiatric Psychiatric: appropriate mood/affect, cooperative - Neurologic Neurologic: CNII-XII intact, moves all extremities HEART Score - HEART Score EKG: Normal Age: < 45 Risk factors: No known risk factors Troponin: Troponin T < 0.010 ng/mL (0.00-0.029) 09/25/20 11:21 Troponin: < normal limit Results - Labs CBC & Chem 7: 09/26/20 05:48 09/26/20 05:48 Labs: Laboratory Last Values WBC 5.8 K/mm3 (4.5-11.0) 09/26/20 05:48 RBC 4.31 M/mm3 (3.65-5.03) 09/26/20 05:48 Hgb 13.0 gm/dl (11.8-15.2) 09/26/20 05:48 Hct 37.9 % (35.5-45.6) 09/26/20 05:48 MCV 88 fl (84-94) 09/26/20 05:48 MCH 30 pg (28-32) 09/26/20 05:48 MCHC 34 % (32-34) 09/26/20 05:48 RDW 14.4 % (13.2-15.2) 09/26/20 05:48 Plt Count 173 K/mm3 (140-440) 09/26/20 05:48 Lymph % (Auto) 23.0 % (13.4-35.0) 09/25/20 00:09 [place] % (Auto) Soils Engineer 09/26/20 05:48 Eos % (Auto) 0.1 % (0.0-4.3) 09/25/20 00:09 Baso % (Auto) 0.7 % (0.0-1.8) 09/25/20 00:09 Lymph # (Auto) 2.3 K/mm3 (1.2-5.4) 09/25/20 00:09 [place] # (Auto) 1.5 K/mm3 (0.0-0.8) H 09/25/20 00:09 Eos # (Auto) 0.0 K/mm3 (0.0-0.4) 09/25/20 00:09 Baso # (Auto) 0.1 K/mm3 (0.0-0.1) 09/25/20 00:09 Add Manual Diff Complete 09/26/20 05:48 Total Counted 100 09/26/20 05:48 Seg Neutrophils % 61.4 % (40.0-70.0) 09/25/20 00:09 Seg Neuts % (Manual) 67.0 % (40.0-70.0) 09/26/20 05:48 Band Neutrophils % 1.0 % 09/26/20 05:48 Lymphocytes % (Manual) 19.0 % (13.4-35.0) 09/26/20 05:48 Monocytes % (Manual) 13.0 % (0.0-7.3) H 09/26/20 05:48 Nucleated RBC % Not Reportable 09/26/20 05:48 Seg Neutrophils # 6.2 K/mm3 (1.8-7.7) 09/25/20 00:09 Seg Neutrophils # Man 3.9 K/mm3 (1.8-7.7) 09/26/20 05:48 Band Neutrophils # 0.1 K/mm3 09/26/20 05:48 Lymphocytes # (Manual) 1.1 K/mm3 (1.2-5.4) L 09/26/20 05:48 Abs React Lymphs (Man) 0.0 K/mm3 09/26/20 05:48 Monocytes # (Manual) 0.8 K/mm3 (0.0-0.8) 09/26/20 05:48 Eosinophils # (Manual) 0.0 K/mm3 (0.0-0.4) 09/26/20 05:48 Basophils # (Manual) 0.0 K/mm3 (0.0-0.1) 09/26/20 05:48 Metamyelocytes # 0.0 K/mm3 09/26/20 05:48 Myelocytes # 0.0 K/mm3 09/26/20 05:48 Promyelocytes # 0.0 K/mm3 09/26/20 05:48 Blast Cells # 0.0 K/mm3 09/26/20 05:48 WBC Morphology Not Reportable 09/26/20 05:48 Hypersegmented Neuts Not Reportable 09/26/20 05:48 Hyposegmented Neuts Not Reportable 09/26/20 05:48 Hypogranular Neuts Not Reportable 09/26/20 05:48 Smudge Cells Not Reportable 09/26/20 05:48 Toxic Granulation Not Reportable 09/26/20 05:48 Toxic Vacuolation Not Reportable 09/26/20 05:48 Dohle Bodies Not Reportable 09/26/20 05:48 Pelger-Huet Anomaly Not Reportable 09/26/20 05:48 Arianna Rods Not Reportable 09/26/20 05:48 Platelet Estimate Consistent w auto 09/26/20 05:48 Clumped Platelets Not Reportable 09/26/20 05:48 Plt Clumps, EDTA Not Reportable 09/26/20 05:48 Large Platelets Not Reportable 09/26/20 05:48 Giant Platelets Not Reportable 09/26/20 05:48 Platelet Satelliting Not Reportable 09/26/20 05:48 Plt Morphology Comment Not Reportable 09/26/20 05:48 RBC Morphology Not Reportable 09/26/20 05:48 Dimorphic RBCs Not Reportable 09/26/20 05:48 Polychromasia Not Reportable 09/26/20 05:48 Hypochromasia Not Reportable 09/26/20 05:48 Poikilocytosis Not Reportable 09/26/20 05:48 Anisocytosis 1+ 09/26/20 05:48 Microcytosis Not Reportable 09/26/20 05:48 Macrocytosis Not Reportable 09/26/20 05:48 Spherocytes Not Reportable 09/26/20 05:48 Pappenheimer Bodies Not Reportable 09/26/20 05:48 Sickle Cells Not Reportable 09/26/20 05:48 Target Cells Not Reportable 09/26/20 05:48 Tear Drop Cells Not Reportable 09/26/20 05:48 Ovalocytes Not Reportable 09/26/20 05:48 Helmet Cells Not Reportable 09/26/20 05:48 [place] Bodies Not Reportable 09/26/20 05:48 Celina Rings Not Reportable 09/26/20 05:48 Lorenzo Cells Not Reportable 09/26/20 05:48 Bite Cells Not Reportable 09/26/20 05:48 Crenated Cell Not Reportable 09/26/20 05:48 Elliptocytes Not Reportable 09/26/20 05:48 Acanthocytes (Spur) Not Reportable 09/26/20 05:48 Rouleaux Not Reportable 09/26/20 05:48 Hemoglobin C Crystals Not Reportable 09/26/20 05:48 Schistocytes Not Reportable 09/26/20 05:48 Malaria parasites Not Reportable 09/26/20 05:48 Yoni Bodies Not Reportable 09/26/20 05:48 Hem Pathologist Commnt No 09/26/20 05:48 D-Dimer 1175.93 ng/mlDDU (0-234) H 09/25/20 14:52 Sodium 138 mmol/L (137-145) 09/26/20 05:48 Potassium 3.8 mmol/L (3.6-5.0) 09/26/20 05:48 Chloride 103.0 mmol/L (98-107) 09/26/20 05:48 Carbon Dioxide 27 mmol/L (22-30) 09/26/20 05:48 Anion Gap 12 mmol/L 09/26/20 05:48 BUN 5 mg/dL (9-20) L 09/26/20 05:48 Creatinine 0.8 mg/dL (0.8-1.3) 09/26/20 05:48 Estimated GFR > 60 ml/min 09/26/20 05:48 BUN/Creatinine Ratio 6 % 09/26/20 05:48 Glucose 84 mg/dL (75-100) 09/26/20 05:48 Lactic Acid 0.90 mmol/L (0.7-2.0) 09/25/20 11:21 Calcium 7.8 mg/dL (8.4-10.2) L 09/26/20 05:48 Total Bilirubin 1.20 mg/dL (0.1-1.2) 09/25/20 00:09 AST 69 units/L (5-40) H 09/25/20 00:09 ALT 230 units/L (7-56) H 09/25/20 00:09 Alkaline Phosphatase 101 units/L (35-129) 09/25/20 00:09 Troponin T < 0.010 ng/mL (0.00-0.029) 09/25/20 11:21 Total Protein 8.2 g/dL (6.3-8.2) 09/25/20 00:09 Albumin 4.2 g/dL (3.9-5) 09/25/20 00:09 Albumin/Globulin Ratio 1.1 % 09/25/20 00:09 Lipase 41 units/L (13-60) 09/25/20 08:46 Urine Color Yellow (Yellow) 09/24/20 Unknown Urine Turbidity Clear (Clear) 09/24/20 Unknown Urine pH 5.0 (5.0-7.0) 09/24/20 Unknown Ur Specific [place] 1.013 (1.003-1.030) 09/24/20 Unknown Urine Protein 100 mg/dl mg/dL (Negative) 09/24/20 Unknown Urine Glucose (UA) 50 mg/dL (Negative) 09/24/20 Unknown Urine Ketones Neg mg/dL (Negative) 09/24/20 Unknown Urine Blood Neg (Negative) 09/24/20 Unknown Urine Nitrite Neg (Negative) 09/24/20 Unknown Urine Bilirubin Neg (Negative) 09/24/20 Unknown Urine Urobilinogen < 2.0 mg/dL (<2.0) 09/24/20 Unknown Ur Leukocyte Esterase Tr (Negative) 09/24/20 Unknown Urine WBC (Auto) 2.0 /HPF (0.0-6.0) 09/24/20 Unknown Urine RBC (Auto) 2.0 /HPF (0.0-6.0) 09/24/20 Unknown Urine Mucus Few /HPF 09/24/20 Unknown Microbiology: Microbiology 09/25/20 00:03 Peripheral/Venous Blood Culture - Preliminary NO GROWTH AFTER 24 HOURS 09/25/20 00:09 Peripheral/Venous Blood Culture - Preliminary NO GROWTH AFTER 24 HOURS Sullivan/IV: Voiding Method Toilet Active Medications - Current Medications Current Medications: Generic Name Dose Route Start Last Admin Trade Name Freq PRN Reason Stop Dose Admin Acetaminophen 650 mg 09/25/20 21:55 09/26/20 01:23 Acetaminophen 325 Mg Tab PO 650 mg Q4H PRN Administration Pain MILD(1-3)/Fever >100.5/ROSALES Albuterol 2.5 mg 09/25/20 21:55 Albuterol 2.5 Mg/3 Ml Nebu IH Q3HRT PRN Shortness Of Breath Famotidine 20 mg 09/25/20 22:00 09/26/20 01:25 Famotidine 20 Mg Tab PO 20 mg BID FABIANA Administration Heparin Sodium (Porcine) 5,000 unit 09/25/20 22:00 09/26/20 01:23 Heparin 5,000 Unit/1 Ml Vial SUB-Q 5,000 unit Q8HR FABIANA Administration Hydralazine HCl 10 mg 09/25/20 21:57 Hydralazine 20 Mg/1 Ml Inj IV Q6H PRN htn Levofloxacin/Dextrose 750 mg in 150 mls @ 100 mls/hr 09/25/20 22:00 09/26/20 01:22 Levaquin 750mg/150ml IV 100 mls/hr Q24HR FABIANA Administration Protocol Sodium Chloride 1,000 mls @ 100 mls/hr 09/25/20 22:15 Nacl 0.9% 1000 Ml IV DIRECT FABIANA Morphine Sulfate 2 mg 09/25/20 22:05 Morphine 2 Mg/1 Ml Inj IV Q4H PRN Pain , Severe (7-10) Ondansetron HCl 4 mg 09/25/20 21:55 Ondansetron 4 Mg/2 Ml Inj IV Q8H PRN Nausea And Vomiting Sodium Chloride 10 ml 09/25/20 22:00 09/26/20 01:25 Sodium Chloride 0.9% 10 Ml Flush Syringe IV 10 ml BID FABIANA Administration Sodium Chloride 10 ml 09/25/20 21:55 Sodium Chloride 0.9% 10 Ml Flush Syringe IV PRN PRN LINE FLUSH
[2020-09-26] MEDS ORDERED: ALBUTEROL 2.5 MG/3 ML NEBU IH SCH (08:00)
--- NOTE | 2020-09-26 10:13 | Electrocardiograph Report ---
[facility] Test Date: 2020-09-24 Test Time: 22:33:45 Pat Name: PATSY VASQUEZ Department: Room: A356 Gender: M Puller Through: GENIE : 1990 Requested By: ED DOC Order Number: [id number] Reading MD: Pablito Gonzalez Measurements Intervals [place] Rate: 110 P: 68 [place]: 159 QRS: 8 QRSD: 86 T: 55 QT: 304 QTc: 412 Interpretive Statements Sinus tachycardia Probable left atrial enlargement Anteroseptal infarct, age indeterminate No previous ECG available for comparison Electronically Signed On 09-26-2020 10:12:43 EDT by Pablito Gonzalez
--- NOTE | 2020-09-26 13:24 | Vascular Lab Report ---
DUPLEX DOPPLER LOWER EXTREMITY VEINS, BILATERAL INDICATION: Elevated D-dimers/rule out DVT. TECHNIQUE: Duplex doppler imaging was performed through the veins of both lower extremities using ve nous compression and other maneuvers. COMPARISON: No relevant prior imaging study available. FINDINGS: Right Common femoral vein: Negative. Right Superficial femoral vein: Negative. Right Popliteal vein: Negative. Right Calf veins: Negative. Left Common femoral vein: Negative. Left Superficial femoral vein: Negative. Left Popliteal vein: Negative. Left Calf veins: Negative. Additional findings: None. IMPRESSION: No sonographic evidence for DVT in either lower extremity. Signer Name: Cam Rodgers MD Signed: 09/26/2020 1:20 PM Workstation Name: [id number]
[2020-09-26] MEDS: ENOXAPARIN 40 MG/0.4 ML INJ SUB-Q SCH (21:19)
--- NOTE | 2020-09-27 08:26 | Progress Note ---
Assessment and Plan Assessment and plan: --COVID-19 test negative; 09/26/20 May DC isolation --Hypoxia; patient needed 3 L of nasal cannula oxygen on admission Today patient is saturating well room air --Persistent fevers T-max last 24 hours 101.3 Current Visit: Yes Status: Acute Multifactorial due to left pneumonia, COVID-19 test negative Cultures negative to date ID consult requested --Left-sided pneumonia Current Visit: Yes Status: Acute Empiric antibiotics .check procalcitonin Cultures negative to date --Pleuritic chest pain Current Visit: Yes Status: Acute Probably secondary to pneumonia Elevated D-dimers rule out PE Pain medications oxygen and supportive care --Tachycardia Current Visit: Yes Status: Acute Sinus tachycardia due to fevers Treat the underlying fever --GERD; Current Visit: Yes Status: Acute Pepcid 20 mg twice a day p.o. --Obesity; BMI 32.3 Current Visit: Yes Status: Acute Patient may need weight reduction when medically stable --DVT prophylaxis Current Visit: Yes Status: Acute Lovenox subcu Closely monitor the patient and adjust the management as needed Follow-up ID evaluation and recommendations Brief history and hospital stay: 30-year-old male patient was admitted through emergency room with left-sided pleuritic chest pain, COVID-19 is negative, left-sided pneumonia, on empiric antibiotics, cultures negative to date, patient has persistent fevers, ID consulted Disposition; follow ID recommendations, discharge when stable 09/27/2020; COVID-19 negative, patient has persistent fevers Left-sided pneumonia on IV antibiotics, ID consulted History Interval history: I seen and examined the patient at the bedside Patient's chart and medications reviewed Patient feels slightly better However remains febrile T-max last 24 hours 101.3 F Vital signs reviewed Hospitalist Physical - Constitutional Vitals: Temp Pulse Resp BP Pulse Ox 99.0 F 99 H 20 144/95 96 09/27/20 04:14 09/27/20 04:14 09/27/20 04:14 09/27/20 04:14 09/27/20 04:14 General appearance: Present: mild distress, well-nourished, other (Febrile) - EENT Eyes: Present: PERRL, EOM intact - Neck Neck: Present: supple, normal ROM - Respiratory Respiratory effort: normal Respiratory: left: rhonchi, bilateral: diminished, negative: rales, wheezing - Cardiovascular Rhythm: regular Heart Sounds: Present: S1 & S2 (Tachycardia) - Extremities Extremities: no ischemia, No edema - Abdominal General gastrointestinal: soft, non-tender, non-distended, normal bowel sounds - Integumentary Integumentary: Present: clear, warm - Psychiatric Psychiatric: appropriate mood/affect, cooperative - Neurologic Neurologic: moves all extremities HEART Score - HEART Score EKG: Normal Age: < 45 Risk factors: No known risk factors Troponin: Troponin T < 0.010 ng/mL (0.00-0.029) 09/25/20 11:21 Troponin: < normal limit Results - Labs CBC & Chem 7: 09/26/20 05:48 09/26/20 05:48 Labs: Laboratory Last Values WBC 5.8 K/mm3 (4.5-11.0) 09/26/20 05:48 RBC 4.31 M/mm3 (3.65-5.03) 09/26/20 05:48 Hgb 13.0 gm/dl (11.8-15.2) 09/26/20 05:48 Hct 37.9 % (35.5-45.6) 09/26/20 05:48 MCV 88 fl (84-94) 09/26/20 05:48 MCH 30 pg (28-32) 09/26/20 05:48 MCHC 34 % (32-34) 09/26/20 05:48 RDW 14.4 % (13.2-15.2) 09/26/20 05:48 Plt Count 173 K/mm3 (140-440) 09/26/20 05:48 Lymph % (Auto) 23.0 % (13.4-35.0) 09/25/20 00:09 Grand % (Auto) 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 09/26/20 05:48 Eos % (Auto) 0.1 % (0.0-4.3) 09/25/20 00:09 Baso % (Auto) 0.7 % (0.0-1.8) 09/25/20 00:09 Lymph # (Auto) 2.3 K/mm3 (1.2-5.4) 09/25/20 00:09 Grand # (Auto) 1.5 K/mm3 (0.0-0.8) H 09/25/20 00:09 Eos # (Auto) 0.0 K/mm3 (0.0-0.4) 09/25/20 00:09 Baso # (Auto) 0.1 K/mm3 (0.0-0.1) 09/25/20 00:09 Add Manual Diff Complete 09/26/20 05:48 Total Counted 100 09/26/20 05:48 Seg Neutrophils % 61.4 % (40.0-70.0) 09/25/20 00:09 Seg Neuts % (Manual) 67.0 % (40.0-70.0) 09/26/20 05:48 Band Neutrophils % 1.0 % 09/26/20 05:48 Lymphocytes % (Manual) 19.0 % (13.4-35.0) 09/26/20 05:48 Monocytes % (Manual) 13.0 % (0.0-7.3) H 09/26/20 05:48 Nucleated RBC % Not Reportable 09/26/20 05:48 Seg Neutrophils # 6.2 K/mm3 (1.8-7.7) 09/25/20 00:09 Seg Neutrophils # Man 3.9 K/mm3 (1.8-7.7) 09/26/20 05:48 Band Neutrophils # 0.1 K/mm3 09/26/20 05:48 Lymphocytes # (Manual) 1.1 K/mm3 (1.2-5.4) L 09/26/20 05:48 Abs React Lymphs (Man) 0.0 K/mm3 09/26/20 05:48 Monocytes # (Manual) 0.8 K/mm3 (0.0-0.8) 09/26/20 05:48 Eosinophils # (Manual) 0.0 K/mm3 (0.0-0.4) 09/26/20 05:48 Basophils # (Manual) 0.0 K/mm3 (0.0-0.1) 09/26/20 05:48 Metamyelocytes # 0.0 K/mm3 09/26/20 05:48 Myelocytes # 0.0 K/mm3 09/26/20 05:48 Promyelocytes # 0.0 K/mm3 09/26/20 05:48 Blast Cells # 0.0 K/mm3 09/26/20 05:48 WBC Morphology Not Reportable 09/26/20 05:48 Hypersegmented Neuts Not Reportable 09/26/20 05:48 Hyposegmented Neuts Not Reportable 09/26/20 05:48 Hypogranular Neuts Not Reportable 09/26/20 05:48 Smudge Cells Not Reportable 09/26/20 05:48 Toxic Granulation Not Reportable 09/26/20 05:48 Toxic Vacuolation Not Reportable 09/26/20 05:48 Dohle Bodies Not Reportable 09/26/20 05:48 Pelger-Huet Anomaly Not Reportable 09/26/20 05:48 Arianna Rods Not Reportable 09/26/20 05:48 Platelet Estimate Consistent w auto 09/26/20 05:48 Clumped Platelets Not Reportable 09/26/20 05:48 Plt Clumps, EDTA Not Reportable 09/26/20 05:48 Large Platelets Not Reportable 09/26/20 05:48 Giant Platelets Not Reportable 09/26/20 05:48 Platelet Satelliting Not Reportable 09/26/20 05:48 Plt Morphology Comment Not Reportable 09/26/20 05:48 RBC Morphology Not Reportable 09/26/20 05:48 Dimorphic RBCs Not Reportable 09/26/20 05:48 Polychromasia Not Reportable 09/26/20 05:48 Hypochromasia Not Reportable 09/26/20 05:48 Poikilocytosis Not Reportable 09/26/20 05:48 Anisocytosis 1+ 09/26/20 05:48 Microcytosis Not Reportable 09/26/20 05:48 Macrocytosis Not Reportable 09/26/20 05:48 Spherocytes Not Reportable 09/26/20 05:48 Pappenheimer Bodies Not Reportable 09/26/20 05:48 Sickle Cells Not Reportable 09/26/20 05:48 Target Cells Not Reportable 09/26/20 05:48 Tear Drop Cells Not Reportable 09/26/20 05:48 Ovalocytes Not Reportable 09/26/20 05:48 Helmet Cells Not Reportable 09/26/20 05:48 [place] Bodies Not Reportable 09/26/20 05:48 [place] Rings Not Reportable 09/26/20 05:48 [place] Cells Not Reportable 09/26/20 05:48 Bite Cells Not Reportable 09/26/20 05:48 Crenated Cell Not Reportable 09/26/20 05:48 Elliptocytes Not Reportable 09/26/20 05:48 Acanthocytes (Spur) Not Reportable 09/26/20 05:48 Rouleaux Not Reportable 09/26/20 05:48 Hemoglobin C Crystals Not Reportable 09/26/20 05:48 Schistocytes Not Reportable 09/26/20 05:48 Malaria parasites Not Reportable 09/26/20 05:48 Yoni Bodies Not Reportable 09/26/20 05:48 Hem Pathologist Commnt No 09/26/20 05:48 D-Dimer 1175.93 ng/mlDDU (0-234) H 09/25/20 14:52 Sodium 138 mmol/L (137-145) 09/26/20 05:48 Potassium 3.8 mmol/L (3.6-5.0) 09/26/20 05:48 Chloride 103.0 mmol/L (98-107) 09/26/20 05:48 Carbon Dioxide 27 mmol/L (22-30) 09/26/20 05:48 Anion Gap 12 mmol/L 09/26/20 05:48 BUN 5 mg/dL (9-20) L 09/26/20 05:48 Creatinine 0.8 mg/dL (0.8-1.3) 09/26/20 05:48 Estimated GFR > 60 ml/min 09/26/20 05:48 BUN/Creatinine Ratio 6 % 09/26/20 05:48 Glucose 84 mg/dL (75-100) 09/26/20 05:48 Lactic Acid 0.90 mmol/L (0.7-2.0) 09/25/20 11:21 Calcium 7.8 mg/dL (8.4-10.2) L 09/26/20 05:48 Total Bilirubin 1.20 mg/dL (0.1-1.2) 09/25/20 00:09 AST 69 units/L (5-40) H 09/25/20 00:09 ALT 230 units/L (7-56) H 09/25/20 00:09 Alkaline Phosphatase 101 units/L (35-129) 09/25/20 00:09 Troponin T < 0.010 ng/mL (0.00-0.029) 09/25/20 11:21 Total Protein 8.2 g/dL (6.3-8.2) 09/25/20 00:09 Albumin 4.2 g/dL (3.9-5) 09/25/20 00:09 Albumin/Globulin Ratio 1.1 % 09/25/20 00:09 Lipase 41 units/L (13-60) 09/25/20 08:46 Urine Color Yellow (Yellow) 09/24/20 Unknown Urine Turbidity Clear (Clear) 09/24/20 Unknown Urine pH 5.0 (5.0-7.0) 09/24/20 Unknown Ur Specific [place] 1.013 (1.003-1.030) 09/24/20 Unknown Urine Protein 100 mg/dl mg/dL (Negative) 09/24/20 Unknown Urine Glucose (UA) 50 mg/dL (Negative) 09/24/20 Unknown Urine Ketones Neg mg/dL (Negative) 09/24/20 Unknown Urine Blood Neg (Negative) 09/24/20 Unknown Urine Nitrite Neg (Negative) 09/24/20 Unknown Urine Bilirubin Neg (Negative) 09/24/20 Unknown Urine Urobilinogen < 2.0 mg/dL (<2.0) 09/24/20 Unknown Ur Leukocyte Esterase Tr (Negative) 09/24/20 Unknown Urine WBC (Auto) 2.0 /HPF (0.0-6.0) 09/24/20 Unknown Urine RBC (Auto) 2.0 /HPF (0.0-6.0) 09/24/20 Unknown Urine Mucus Few /HPF 09/24/20 Unknown Coronavirus (PCR) Negative (Negative) 09/26/20 Unknown Microbiology: Microbiology 09/25/20 00:03 Peripheral/Venous Blood Culture - Preliminary NO GROWTH AFTER 48 HOURS 09/25/20 00:09 Peripheral/Venous Blood Culture - Preliminary NO GROWTH AFTER 48 HOURS 09/25/20 Unknown Urine,Clean Catch Urine Culture - Preliminary NO GROWTH AFTER 24 HOURS Sullivan/IV: Voiding Method Toilet Active Medications - Current Medications Current Medications: Generic Name Dose Route Start Last Admin Trade Name Freq PRN Reason Stop Dose Admin Acetaminophen 650 mg 09/25/20 21:55 09/26/20 22:31 Acetaminophen 325 Mg Tab PO 650 mg Q4H PRN Administration Pain MILD(1-3)/Fever >100.5/ROSALES Albuterol 2.5 mg 09/25/20 21:55 Albuterol 2.5 Mg/3 Ml Nebu IH Q3HRT PRN Shortness Of Breath Enoxaparin Sodium 40 mg 09/26/20 22:00 09/26/20 21:19 Enoxaparin 40 Mg/0.4 Ml Inj SUB-Q Not Given QDAY@2200 FABIANA Protocol Famotidine 20 mg 09/25/20 22:00 09/26/20 21:19 Famotidine 20 Mg Tab PO Not Given BID FABIANA Hydralazine HCl 10 mg 09/25/20 21:57 Hydralazine 20 Mg/1 Ml Inj IV Q6H PRN htn Levofloxacin/Dextrose 750 mg in 150 mls @ 100 mls/hr 09/25/20 22:00 09/26/20 10:51 Levaquin 750mg/150ml IV 100 mls/hr Q24HR FABIANA Administration Protocol Sodium Chloride 1,000 mls @ 100 mls/hr 09/25/20 22:15 09/26/20 22:31 Nacl 0.9% 1000 Ml IV 100 mls/hr DIRECT FABIANA Administration Morphine Sulfate 2 mg 09/25/20 22:05 Morphine 2 Mg/1 Ml Inj IV Q4H PRN Pain , Severe (7-10) Ondansetron HCl 4 mg 09/25/20 21:55 Ondansetron 4 Mg/2 Ml Inj IV Q8H PRN Nausea And Vomiting Sodium Chloride 10 ml 09/25/20 22:00 09/26/20 21:16 Sodium Chloride 0.9% 10 Ml Flush Syringe IV 10 ml BID FABIANA Administration Sodium Chloride 10 ml 09/25/20 21:55 Sodium Chloride 0.9% 10 Ml Flush Syringe IV PRN PRN LINE FLUSH Nutrition/Malnutrition Assess - Dietary Evaluation Nutrition/Malnutrition Findings: Nutrition Notes Start: 09/26/20 09:26 Freq: Status: Active Protocol: Document 09/26/20 09:26 MYRTLE (Rec: 09/26/20 09:27 MYRTLE [id number]) Nutrition Notes Initial or Follow up Brief Note Subjective/Other Information RN screen for skin risk. Florentin score 20. Likely an error. Nutrition Intervention Revisit per MD consult or patient Sign Off request:
--- NOTE | 2020-09-27 08:58 | XRay Report ---
CHEST 1 VIEW INDICATION / CLINICAL INFORMATION: Left-sided pneumonia. COMPARISON: 09/25/2020 FINDINGS: SUPPORT DEVICES: None. HEART / MEDIASTINUM: No significant abnormality. LUNGS / PLEURA: Focal density in the left lung base No pneumothorax. ADDITIONAL FINDINGS: No significant additional findings. IMPRESSION: Focal density is developed in the left lung base which could be a combination of pneumonia, atelectas is and pleural fluid. The right lung is clear Signer Name: Danis Turner MD FACR Signed: 09/27/2020 8:54 AM Workstation Name: [id number]
[2020-09-27] MEDS: FAMOTIDINE 20 MG TAB PO SCH ×2 (09:43→21:36)
--- NOTE | 2020-09-27 12:54 | Consultation ---
History of Present Illness - Reason for Consult Consult date: 09/27/20 Fever Requesting physician: KENNY BARBOZA - History of Present Illness The patient is a 30-year-old male with history of asthma admitted to the hospital with left-sided chest pain. He also was taking p.o. antibiotics for a rectal infection. Upon evaluation in the ER, chest x-ray did not reveal any obvious pneumonia. CT abdomen and pelvis showed left lower lobe air bronchograms, prominent mesenteric lymph nodes without much change compared to previous CT scan about 10 days prior. VQ scan was negative for PE. DVT scan negative repeat chest x-ray today showed left lower lobe pneumonia. Due to persistent fever, infectious diseases was consulted. Labs with normal WBC, procalcitonin 0.08, AST 69, ALT 230. UA not suggestive of infection. COVID-19 PCR negative. Smokes marijuana as well as other synthetic drugs, denies any IVDU. Denies any significant alcohol use. Review of Systems: Per HPI Past History Past Medical History: other (Asthma) Medications and Allergies Allergies Allergy/AdvReac Type Severity Reaction Status Date / Time Penicillins Allergy Unknown Verified 09/24/20 23:37 Home Medications Medication Instructions Recorded Confirmed Last Taken Type Naproxen 500 mg PO Q12H PRN #12 tablet 03/14/20 09/26/20 09/25/20 10:00 Rx Ciprofloxacin HCl 500 mg PO BID #20 tablet 09/08/20 09/26/20 09/25/20 10:00 Rx Promethazine [Phenergan] 25 mg PO Q6HR PRN #12 tab 09/08/20 09/26/20 09/25/20 10:00 Rx metroNIDAZOLE [Flagyl TAB] 500 mg PO Q8HR #30 tablet 09/08/20 09/26/20 09/26/20 06:25 Rx 500 traMADoL [Ultram 50 MG tab] 50 mg PO Q4HR PRN #15 tablet 09/08/20 09/26/20 09/25/20 10:00 Rx Ondansetron [Zofran ODT TAB] 8 mg PO Q8HR #20 tab.rapdis 09/14/20 09/26/20 09/25/20 10:00 Rx Promethazine [Phenergan] 25 mg IA Q6HR PRN #5 supp.rect 09/14/20 09/26/20 09/25/20 10:00 Rx Active Meds: Active Medications Acetaminophen (Acetaminophen 325 Mg Tab) 650 mg PO Q4H PRN PRN Reason: Pain MILD(1-3)/Fever >100.5/ROSALES Last Admin: 09/26/20 22:31 Dose: 650 mg Documented by: Albuterol (Albuterol 2.5 Mg/3 Ml Nebu) 2.5 mg IH Q3HRT PRN PRN Reason: Shortness Of Breath Enoxaparin Sodium (Enoxaparin 40 Mg/0.4 Ml Inj) 40 mg SUB-Q QDAY@2200 [facility]; Protocol Last Admin: 09/26/20 21:19 Dose: Not Given Documented by: Famotidine (Famotidine 20 Mg Tab) 20 mg PO BID [facility] Last Admin: 09/27/20 09:43 Dose: Not Given Documented by: Hydralazine HCl (Hydralazine 20 Mg/1 Ml Inj) 10 mg IV Q6H PRN PRN Reason: htn Sodium Chloride (Nacl 0.9% 1000 Ml) 1,000 mls @ 100 mls/hr IV DIRECT [facility] Last Admin: 09/26/20 22:31 Dose: 100 mls/hr Documented by: Morphine Sulfate (Morphine 2 Mg/1 Ml Inj) 2 mg IV Q4H PRN PRN Reason: Pain , Severe (7-10) Ondansetron HCl (Ondansetron 4 Mg/2 Ml Inj) 4 mg IV Q8H PRN PRN Reason: Nausea And Vomiting Sodium Chloride (Sodium Chloride 0.9% 10 Ml Flush Syringe) 10 ml IV BID [facility] Last Admin: 09/27/20 09:42 Dose: 10 ml Documented by: Sodium Chloride (Sodium Chloride 0.9% 10 Ml Flush Syringe) 10 ml IV PRN PRN PRN Reason: LINE FLUSH Physical Examination - Physical Exam Narrative exam: Physical Exam: Constitutional: Alert, cooperative. No acute distress Head, Ears, Nose: Normocephalic, atraumatic. External ears, nose normal Eyes: Conjunctivae/corneas clear. No icterus. No ptosis. Neck: Supple, no meningeal signs Cardiovascular: S1, S2 normal. Respiratory: Good air entry, clear to auscultation bilaterally GI: Soft, non-tender; bowel sounds normal. No peritoneal signs Musculoskeletal: No pedal edema, no cyanosis. Skin: No rash or abscess Hem/Lymphatic: No palpable cervical or supraclavicular nodes. No lymphangitis Psych: Mood ok. Affect normal Neurological: Awake, alert, oriented. No gross abnormality - Constitutional Vitals: Vital Signs Temp Pulse Resp BP Pulse Ox 97.9 F 105 H 20 139/92 96 09/27/20 11:36 09/27/20 11:36 09/27/20 11:36 09/27/20 11:36 09/27/20 11:36 Temperature -Last 24 Hours Temperature 97.9 F Temperature 99.0 F Temperature 101.3 F Temperature 100.0 F Results - Labs CBC & Chem 7: 09/26/20 05:48 09/26/20 05:48 - Imaging and Cardiology Chest x-ray: report reviewed, image reviewed (LLL pneumonia) Assessment and Plan Cultures: COVID-19 PCR negative 09/25/2020 blood culture: No growth 09/25/2020 urine culture: No growth A/P: 30-year-old male with history of asthma, chlamydia #Left-sided pneumonia: cover for community acquired pneumonia. #History of chlamydia #Recent history of proctitis noted on CT scan: denies MSM behavior. #Penicillin allergy: Patient reports he has taken penicillin before without any issues. #Substance use: Smokes marijuana as well as other synthetic drugs, denies any IVDU. Denies any significant alcohol use. Recs: -Switched to ceftriaxone, azithromycin -Levofloxacin discontinued -HIV ordered, verbal consent obtained from patient -RPR ordered Karolina Quick MD, FACP [facility] ([facility] O: [phone] F: [phone]
[2020-09-27] MEDS: cefTRIAXone/NS 2 GM/100 ML 2 GM/100 ML BAG IV SCH (13:36)
[2020-09-27] MEDS ORDERED: AZITHROMYCIN/NS 500 MG/250 ML 500 MG/250 ML BAG IV SCH (14:00)
[2020-09-27] MEDS: ENOXAPARIN 40 MG/0.4 ML INJ SUB-Q SCH (21:36)
[2020-09-28 04:36] VITALS: BP 136/90
--- NOTE | 2020-09-28 08:04 | Progress Note ---
Assessment and Plan --COVID-19 test negative; 09/26/20 May DC isolation --Hypoxia; patient needed 3 L of nasal cannula oxygen on admission Today patient is saturating well room air --Persistent fevers T-max last 24 hours 101.3 Current Visit: Yes Status: Acute Multifactorial due to left pneumonia, COVID-19 test negative Cultures negative to date ID consult requested --Left-sided pneumonia Current Visit: Yes Status: Acute Empiric antibiotics .check procalcitonin Cultures negative to date --Pleuritic chest pain Current Visit: Yes Status: Acute Probably secondary to pneumonia Elevated D-dimers rule out PE Pain medications oxygen and supportive care --Tachycardia Current Visit: Yes Status: Acute Sinus tachycardia due to fevers Treat the underlying fever --GERD; Current Visit: Yes Status: Acute Pepcid 20 mg twice a day p.o. Subjective Date of service: 09/28/20 Principal diagnosis: pna Interval history: 30-year-old male patient was admitted through emergency room with left-sided p leuritic chest pain, COVID-19 is negative, left-sided pneumonia, on empiric antibiotics, cultures negative to date, patient has persistent fevers, ID consulted Disposition; follow ID recommendations, discharge when stable 09/27/2020; COVID-19 negative, patient has persistent fevers Left-sided pneumonia on IV antibiotics, ID consulted Objective - Constitutional Vitals: Vital Signs - 12hr 09/27/20 09/27/20 09/28/20 21:46 22:00 04:35 Temperature 98.9 F 98.4 F Pulse Rate 107 H 104 H Respiratory 20 20 Rate Blood Pressure 140/84 136/90 O2 Sat by Pulse 96 100 96 Oximetry - Labs CBC & Chem 7: 09/26/20 05:48 09/26/20 05:48 HEART Score - HEART Score EKG: Normal Age: < 45 Risk factors: No known risk factors Troponin: Troponin T < 0.010 ng/mL (0.00-0.029) 09/25/20 11:21 Troponin: < normal limit
[2020-09-28] MEDS: FAMOTIDINE 20 MG TAB PO SCH (09:11)
[2020-09-28] MEDS: cefTRIAXone/NS 2 GM/100 ML 2 GM/100 ML BAG IV SCH (09:12)
--- NOTE | 2020-09-28 11:35 | Discharge Summary ---
Providers - Providers Date of Admission: 09/26/20 19:07 Date of discharge: 09/28/20 Attending physician: SAM CASTRO 09/27/20 08:08 Consult to Physician [CONS] Routine Comment: Consulting Provider: TALIB REAGAN Physician Instructions: Reason For Exam: Persistent fevers/left pneumonia/ Covid negative/ Primary care physician: ENGINE BOSS Hospitalization Condition: Fair Hospital course: 30-year-old male that presented with acute respiratory failure hypoxemia fever secondary to pneumonia. Patient admitted started on IV antibiotics. Had multiple infectious episodes therefore HIV diagnosis will high in the differential. Patient test came back positive. Patient therefore did not want to stay and signed out AMA. Patient wanted to tell his mother and his girlfriend. Did not want to stay for any additional medications or treatment pneumonia. I did meet patient have way I did tell him to seek therapy at the [facility] because he did not have any insurance at [facility] clinic address given. Also call patient in some Bactrim double strength antibiotics for his pneumonia and proctitis. Patient did not want to stay under any means and signed out AMA. Disposition: [id number] LEFT AGAINST MED ADVICE Final Discharge Diagnosis (Prints w/discharge instructions): Pneumonia Core Measure Documentation - Palliative Care Palliative Care/ Comfort Measures: Not Applicable - Core Measures Any of the following diagnoses?: none Exam - Constitutional Vitals: Temp Pulse Resp BP Pulse Ox 98.4 F 104 H 20 136/90 100 09/28/20 04:35 09/28/20 04:35 09/28/20 04:35 09/28/20 04:35 09/28/20 09:52 Plan
[2020-10-09 13:57] LABS: HIV-1 Antibody Differentiation SEE SCANNED RESULT; HIV-2 Antibody Differentiation SEE SCANNED RESULT
== END 2020-09-28 11:00 | disposition left against medical advice (07) | DRG 193 ==
LOC: ED 21:34 → 3A 09-25 21:55 → OBSVTOIN 09-26 19:07
PROVIDERS: ADMIT Hospitalist; ATTEND Internal Medicine
DX: J18.9 Pneumonia, unspecified organism (principal); J96.01 Acute respiratory failure with hypoxia; R00.0 Tachycardia, unspecified; R07.89 Other chest pain; Z20.822 Contact with and (suspected) exposure to COVID-19; J45.909 Unspecified asthma, uncomplicated; Z53.29 Procedure and treatment not carried out because of patient's decision for other reasons; Z88.0 Allergy status to penicillin
CPT/HCPCS: 36415; 71045; 74177; 78580; 80048; 80053; 81001; 82140; 83690; 84145; 84484; 85007; 85025; 85379; 86592; 86689; 87040; 87070; 87086; 87205; 87806; 93005; 93970; 96365; 96375; G0378; A9540; J0456; J0692; J0696; J1644; J1885; J1956; J2405; J3370; J7030; J7040; Q9967; U0003